=== PATIENT | female | born 1935 | race Caucasian/White ===

== ENCOUNTER 2020-09-01 12:58 | Outpatient (CLI) | payer MEDICARE, SELFPAY ==
--- NOTE | ~2020-09-01 | XR_ITS ---
XR lumbar spine 2-3V DATE: 09/01/2020 13:16 INDICATION: Right low back pain. No injury. TECHNIQUE: AP, lateral, coned lateral lumbosacral views COMPARISON: None FINDINGS: Diffuse osteopenia. Normal alignment of the lumbar vertebrae. No fracture or bone destruction is evident. The included lo wer thoracic and lumbar pedicles are intact. There is mild degenerative disease at L1-2 and L2-3, L4-5. There is severe degenerative disc disease at L5-S1. The sacroiliac joints are intact. There is calcification of the abdominal aorta but no apparent aneurysm. IMPRESSION: Multilevel degenerative disc disease, most prominent at L5-S1 Reviewed, dictated and finalized at location A.
--- NOTE | ~2020-09-01 | XR_ITS ---
XR sacroiliac joints min 3V DATE: 09/01/2020 13:16 INDICATION: Low back pain TECHNIQUE: AP and bilateral oblique views COMPARISON: None FINDINGS: No fracture or dislocation, erosive change or ankylosis at the sacroiliac joints. There is some sclerosis, right greater than left, consistent with degenerative change. There is degenerative c hange at the pubic symphysis as well. Severe degenerative disc disease at L5-S1 and lesser degenerative disc disease at the remaining mid a nd lower lumbar interspaces. IMPRESSION: Degenerative change at the sacroiliac joints; no erosive change or ankylosis Reviewed, dictated and finalized at Location A. Reviewed, dictated and finalized at location A.
--- NOTE | ~2020-09-01 | XR_ITS ---
XR pelvis 1-2V DATE: 09/01/2020 13:16 INDICATION: Low back pain, pelvic pain. TECHNIQUE: AP pelvis. COMPARISON: None FINDINGS: Degenerative changes are noted at the pubic symphysis and sacroiliac joints. No pelvic fracture or bone destruction is detected. Iliac and femoral artery calcifications. IMPRESSION: Degenerative change at the sacroiliac joints and pubic symphysis; no pelvic fracture Reviewed, dictated and finalized at location A. IMPRESSION: Degenerative change at the sacroiliac joints and pubic symphysis; n o pelvic fracture
== END 2020-09-01 12:59 | disposition home or self-care (01) ==
PROVIDERS: PCP Internal Medicine; Visit Provider Internal Medicine
DX: M51.36 Other intervertebral disc degeneration, lumbar region (principal); M51.37 Other intervertebral disc degeneration, lumbosacral region; M53.3 Sacrococcygeal disorders, not elsewhere classified
CPT/HCPCS: 72100; 72170; 72202

== ENCOUNTER → 2021-12-23 12:41 | Outpatient (CLI) | payer MEDICARE, SELFPAY ==
--- NOTE | ~2021-12-23 | CT_ITS ---
EXAMINATION: CT abdomen pelvis w con INDICATION: Unspecified abdominal pain TECHNIQUE: Computed tomographic images of the abdomen and pelvis were obtained after the administrati on of 100 cc of Omnipaque 350 intravenous contrast. The dose-length product (DLP) was 517.53 mGy-cm. Automated exposure control and iterative reconstruction technique were employed. COMPARISON: 04/02/2019 FINDINGS: Minimal dependent atelectasis is present in the lung bases. The heart size is normal. There are trace pleural effusions. The gallbladder is surgically absent. There is mild enlargement of the common bile duct and central intrahepatic ducts which is likely due to post cholecystectomy state. Pu nctate calcifications in an otherwise normal spleen likely represent healed granulomatous disease. Th e liver, pancreas, and adrenal glands are normal. Again noted is medial orientation of the lower pole s of the kidneys which appear to be connected by a thin fibrous band. An extrarenal pelvis is noted o n the right. There is calcified atherosclerosis of the aorta and many of the other arteries. No patho logically enlarged abdominal or pelvic lymph nodes are identified. A moderate volume of colonic stool is present. There is mild lumbar spondylosis. There is a small amount of intraluminal gas in the uri nary bladder. IMPRESSION: 1. No CT correlate for the patient's symptoms. 2. Small amount of intraluminal gas in the urinary bladder of unclear etiology. Correlate for history of catheterization. Reviewed, dictated and finalized at location A. NUE DIRECTOR
[2021-12-23 13:09] LABS: Estimated Glomerular Filt Rate 43
== END ==
PROVIDERS: Visit Provider Internal Medicine
DX: R10.9 Unspecified abdominal pain (principal); R79.89 Other specified abnormal findings of blood chemistry
CPT/HCPCS: 74177; Q9967

== ENCOUNTER 2022-01-27 10:06 | Outpatient (CLI) | payer MEDICARE, SELFPAY ==
--- NOTE | ~2022-01-27 | XR_ITS ---
XR chest 2V 01/27/2022 10:30 Indication: Follow-up infiltrates. Procedure: PA and lateral views of the chest Comparison: 09/01/[address] dated 12/23/2021 Findings: Bibasilar airspace disease. Small pleural effusions. Heart size normal. No edema or pneumot horax. No acute osseous abnormality. Impression: 1: Bibasilar airspace disease may represent pneumonia and/or atelectasis. 2: Small pleural effusions. Reviewed, dictated and finalized at location A. Impression: 1: Bibasilar airspace disease may represent pneumonia and/or atelectasis. 2: Small pleural effusions.
[2022-01-27 10:30] LABS: Basophils Percent Auto 0.8 % (0.2-1.2); Eosinophils Absolute Auto 0.1 K/mm3 (0-0.3); Eosinophils Percent Auto 2.6 % (0-4.4); Hematocrit 32.9 % (37.0-47.0); Hemoglobin 10.3 g/dL (12.0-15.0); Immature Granulocyte Absolute 0.01 K/mm3 (0.00-0.031); Immature Granulocyte Percent A 0.2 % (0-0.5); Lymphocytes Absolute Auto 1.48 K/mm3 (0.9-3.2); Lymphocytes Percent Auto 29.7 % (18.3-44.2); Mean Corpuscular HGB Conc 31.3 g/dl (32-36); Mean Corpuscular Hemoglobin 31.7 pg (26-34); Mean Corpuscular Volume 101.2 fl (80-100); Mean Platelet Volume 10.2 fl (7.4-10.4); Monocytes Absolute Auto 0.5 K/mm3 (0.1-0.6); Monocytes Percent Auto 9.2 % (2.6-8.5); Neutrophils Absolute Auto 2.9 K/mm3 (1.3-6.7); Neutrophils Percent Auto 57.5 % (45.5-73.1); Platelet Count Result 194 k/mm3 (150-375); Red Blood Count 3.25 M/mm3 (4.2-5.4); Red Cell Distribution Width 13.7 % (11.5-14.5)
[2022-01-27 10:42] LABS: Anion Gap 5 mmol/L (8-16); Blood Urea Nitrogen 21 mg/dL (7-17); Calcium 8.9 mg/dL (8.4-10.2); Carbon Dioxide 35 mmol/L (22-30); Chloride 100 mmol/L (98-107); Estimated Glomerular Filt Rate 53; Glucose 148 mg/dL (65-110); Magnesium 1.7 mg/dL (1.6-2.3); Potassium 3.9 mmol/L (3.4-5.0); Sodium 140 mmol/L (137-145)
[2022-01-27 10:43] LABS: Anion Gap 5 mmol/L (8-16); Blood Urea Nitrogen 21 mg/dL (7-17); Carbon Dioxide 35 mmol/L (22-30); Chloride 100 mmol/L (98-107); Estimated Glomerular Filt Rate 47; Glucose 148 mg/dL (65-110); Potassium 3.8 mmol/L (3.4-5.0); Sodium 140 mmol/L (137-145)
[2022-01-27 10:49] LABS: NT Pro B Type Natriuretic Pept 2650 pg/mL (5-100)
== END 2022-01-27 10:07 | disposition home or self-care (01) ==
PROVIDERS: PCP Internal Medicine; Visit Provider Internal Medicine
DX: R93.89 Abnormal findings on diagnostic imaging of other specified body structures (principal); I50.9 Heart failure, unspecified; R06.02 Shortness of breath; J90 Pleural effusion, not elsewhere classified; R91.8 Other nonspecific abnormal finding of lung field
CPT/HCPCS: 36415; 71046; 80048; 83735; 83880; 85025

== ENCOUNTER 2022-02-03 09:50 | Outpatient (CLI) | payer MEDICARE, SELFPAY ==
[2022-02-03 10:54] LABS: NT Pro B Type Natriuretic Pept 1080 pg/mL (5-100)
== END 2022-02-03 09:51 | disposition home or self-care (01) ==
LOC: ANHLAB 09:53
PROVIDERS: PCP Internal Medicine; Visit Provider Internal Medicine
DX: I50.9 Heart failure, unspecified (principal); R06.02 Shortness of breath
CPT/HCPCS: 36415; 83880

== ENCOUNTER 2022-02-04 14:13 | Outpatient (CLI) | payer MEDICARE, SELFPAY ==
[2022-02-04 14:45] LABS: Anion Gap 8 mmol/L (8-16); Blood Urea Nitrogen 20 mg/dL (7-17); Calcium 9.5 mg/dL (8.4-10.2); Carbon Dioxide 34 mmol/L (22-30); Chloride 99 mmol/L (98-107); Estimated Glomerular Filt Rate 43; Glucose 95 mg/dL (65-110); Potassium 4.3 mmol/L (3.4-5.0); Sodium 141 mmol/L (137-145)
== END 2022-02-04 14:14 | disposition home or self-care (01) ==
LOC: ANHLAB 14:16
PROVIDERS: PCP Internal Medicine; Visit Provider Internal Medicine
DX: N18.2 Chronic kidney disease, stage 2 (mild) (principal); I50.9 Heart failure, unspecified
CPT/HCPCS: 36415; 80048

== ENCOUNTER 2022-03-11 10:24 | Outpatient (CLI) | payer MEDICARE, SELFPAY ==
[2022-03-11 10:59] LABS: Alanine Aminotransferase 86 U/L (4-35); Albumin Level 4.6 g/dL (3.5-5.1); Alkaline Phosphatase 51 U/L (38-126); Anion Gap 12 mmol/L (8-16); Aspartate Amino Transferase 108 U/L (14-36); Bilirubin,Total 0.6 mg/dL (0.2-1.3); Blood Urea Nitrogen 33 mg/dL (7-17); Calcium 9.8 mg/dL (8.4-10.2); Carbon Dioxide 23 mmol/L (22-30); Chloride 100 mmol/L (98-107); Cholesterol 136 mg/dL (0-200); Estimated Glomerular Filt Rate 28; Glucose 106 mg/dL (65-110); HDL Direct 42 mg/dL; Potassium 4.9 mmol/L (3.4-5.0); Sodium 135 mmol/L (137-145); Triglycerides 176 mg/dL (<150)
[2022-03-11 11:00] LABS: Hemoglobin A1C 5.8 % (<5.7)
[2022-03-11 11:10] LABS: LDL Cholesterol Direct 47 mg/dL
== END 2022-03-11 10:25 | disposition home or self-care (01) ==
PROVIDERS: PCP Internal Medicine; Visit Provider Internal Medicine
DX: E11.22 Type 2 diabetes mellitus with diabetic chronic kidney disease (principal); N18.2 Chronic kidney disease, stage 2 (mild); I50.9 Heart failure, unspecified
CPT/HCPCS: 36415; 80053; 80061; 83036

== ENCOUNTER 2022-04-02 07:19 | Outpatient (CLI) | payer MEDICARE, SELFPAY ==
--- NOTE | ~2022-04-02 | NM_ITS ---
EXAMINATION: NM martin stress w perfusion DATE: 04/02/2022 14:25 INDICATION: Dyspnea TECHNIQUE: Rest images were obtained following intravenous administration of 9.5 mCi Tc99m tetrofosmi n (Myoview). The patient was infused intravenously with Lexiscan (Regadenoson). Then, 30.5 mCi Tc99m tetrofosmin (Myoview) was administered intravenously, and stress images were obtained. Data was recon structed into short axis and horizontal and vertical long axis SPECT images. Gated SPECT images were also obtained. COMPARISON: None. FINDINGS: Normal perfusion on rest imaging. Equivocal small mild reversible perfusion defect on the p ost stress images at the apical inferior and apical septal segments. There is normal left ventricula r chamber size, wall motion and ejection fraction. Left ventricular ejection fraction measures >70%. IMPRESSION: 1. Normal myocardial perfusion at rest and during stress. 2. Left ventricular ejection fraction measuring >70%. Reviewed, dictated and finalized at location B.
--- NOTE | 2022-04-02 07:38 | ECHO_ITS ---
Patient Info Name: Elaine Menendez Age: 86 years : 1935 Gender: Female Ht: 62 in Wt: 110 lbs BSA: 1.48 m2 HR: 53 bpm BP: 130 / 88 mmHg Technical Quality: Fair Exam Date: 04/02/2022 8:19 AM Exam Location: [facility] Patient Status: Outpatient Admit Date: 04/02/2022 Staff Ordering Physician: Austyn Sewell DO Microfilming Document Preparer: Mehrdad Koenig RDCS, RT Attending Provider: Austyn Sewell DO Referring Physician: Donato DESAI; Exam Type: CA echo doppler color flow Study Info Indications R06.00 - Dyspnea, unspecified Complete two-dimensional, color flow and Doppler transthoracic echocardiogram is performed. Summary 1. Complete two-dimensional, color flow and Doppler transthoracic echocardiogram is performed. 2. Left ventricular chamber dimension is normal. 3. Left ventricular systolic function is normal, estimated at 60-65%. 4. There is mildly increased left ventricular wall thickness. 5. The left ventricular diastolic function is abnormal. 6. E/e' 13 is mildly elevated. 7. There is mild aortic valve sclerosis. 8. The mitral valve has mildly calcified annulus. 9. There is mild mitral valve regurgitation. 10. No pulmonary hypertension, estimated pulmonary arterial systolic pressure is 36 mmHg. 11. There is small right sided pericardial effusion. No cardiac tamponade. Left Ventricle E/e' 13 is mildly elevated. Left ventricular chamber dimension is normal. Left ventricular systolic function is normal, estimated at 60-65%. There is mildly increased left ventricular wall thickness. The left ventricular diastolic function is abnormal. Right Ventricle Right ventricular systolic function is normal and with normal TAPSE 2.0 cm. Right ventricular chamber dimension is normal. Left Atria Left atrial chamber dimension is normal. Right Atria Right atrial chamber dimension is normal. Aortic Valve The aortic valve is trileaflet. There is mild aortic valve sclerosis. There is no aortic valve stenosis. There is no aortic valve regurgitation. Pulmonic Valve There is no pulmonic regurgitation. Mitral Valve The mitral valve has mildly calcified annulus. There is no mitral valve stenosis. There is mild mitral valve regurgitation. Tricuspid Valve There is no tricuspid valve regurgitation. No pulmonary hypertension, estimated pulmonary arterial systolic pressure is 36 mmHg. Pericardium/Pleural There is small right sided pericardial effusion. No cardiac tamponade. Inferior Vena Cava Normal inferior vena cava with >50% collapse upon inspiration consistent with normal right atrial pressure, 5 mmHg. Aorta The aortic root size at the sinus of Valsalva is normal. Left Ventricular Outflow Tract Name Value Normal LVOT 2D LVOT Diameter 2.0 cm LVOT Doppler LVOT Peak Gradient 1 mmHg LVOT Mean Gradient 1 mmHg LVOT VTI 15 cm LVOT VTI/AV VTI Ratio 0.6 LVOT Stroke Volume 45 ml LVOT CO 2.4 l/min LVO
--- NOTE | 2022-04-02 08:01 | EST_ITS ---
Patient Info Name: Elaine Menendez Age: 86 years : 1935 Gender: Female Ht: 64 in Wt: 118 lbs BSA: 1.55 m2 HR: 53 bpm BP: 135 / 65 mmHg Heart Rhythm: Sinus Rhythm Exam Date: 04/02/2022 9:22 AM Exam Location: [facility] Stress Patient Status: Outpatient Admit Date: 04/02/2022 Staff Ordering Physician: Austyn Sewell DO Attending Provider: Austyn Sewell DO Exercise Technologist: Rosy Watson CT Exercise Physician: Austyn Sewell DO Exam Type: CA stress martin w NM Study Info Indications R06.09 - Other forms of dyspnea A regadenoson stress test was performed. Summary 1. 1. Abnormal lexiscan stress test for ischemic ST changes by ECG criteria. 2. 2. Stable hemodynamics throughout the test. 3. 3. Nuclear scan to follow and will be reported separately. Please correlate with it. 4. 4. Patient informed of the above results. Protocol: Lexiscan Stress ECG Details Stage: REST Duration (min): 0 min : 52 sec HR (bpm): 54 SBP (mmHg): 135 DBP (mmHg): 65 Stage: REST Duration (min): 12 min : 3 sec HR (bpm): 52 SBP (mmHg): 135 DBP (mmHg): 65 Stage: STAGE 1 Duration (min): 0 min : 59 sec HR (bpm): 54 SBP (mmHg): 164 DBP (mmHg): 68 Stage: RECOVERY Duration (min): 1 min : 0 sec HR (bpm): 55 SBP (mmHg): 164 DBP (mmHg): 68 Stage: RECOVERY Duration (min): 2 min : 0 sec HR (bpm): 55 SBP (mmHg): 164 DBP (mmHg): 68 Stage: RECOVERY Duration (min): 3 min : 0 sec HR (bpm): 55 SBP (mmHg): 165 DBP (mmHg): 65 Stage: RECOVERY Duration (min): 4 min : 0 sec HR (bpm): 53 SBP (mmHg): 165 DBP (mmHg): 65 Stage: RECOVERY Duration (min): 5 min : 0 sec HR (bpm): 83 SBP (mmHg): 159 DBP (mmHg): 60 Stage: RECOVERY Duration (min): 6 min : 0 sec HR (bpm): 86 SBP (mmHg): 159 DBP (mmHg): 60 Stage: RECOVERY Duration (min): 7 min : 0 sec HR (bpm): 87 SBP (mmHg): 138 DBP (mmHg): 59 Stage: RECOVERY Duration (min): 8 min : 0 sec HR (bpm): 88 SBP (mmHg): 138 DBP (mmHg): 59 Stage: RECOVERY Duration (min): 9 min : 0 sec HR (bpm): 85 SBP (mmHg): 140 DBP (mmHg): 61 Stage: RECOVERY Duration (min): 10 min : 0 sec HR (bpm): 84 SBP (mmHg): 140 DBP (mmHg): 61 Stage: RECOVERY Duration (min): 11 min : 0 sec HR (bpm): 76 SBP (mmHg): 151 DBP (mmHg): 63 Stage: RECOVERY Duration (min): 12 min : 0 sec HR (bpm): 73 SBP (mmHg): 151 DBP (mmHg): 63 Stage: RECOVERY Duration (min): 13 min : 0 sec HR (bpm): 67 SBP (mmHg): 157 DBP (mmHg): 66 Stage: RECOVERY Duration (min): 13 min : 7 sec HR (bpm): 67 SBP (mmHg): 157 DBP (mmHg): 66 Rest HR: 52 bpm Peak HR: 90 bpm
== END 2022-04-02 07:20 | disposition home or self-care (01) ==
LOC: ANHCARD 07:20
PROVIDERS: PCP Internal Medicine; Visit Provider Internal Medicine Cardiovascular Disease
DX: R06.00 Dyspnea, unspecified (principal); R93.1 Abnormal findings on diagnostic imaging of heart and coronary circulation; J90 Pleural effusion, not elsewhere classified; I35.8 Other nonrheumatic aortic valve disorders
CPT/HCPCS: 78452; 93017; 93306; A9502; J0280; J2785

== ENCOUNTER 2022-04-15 10:11 | Outpatient (CLI) | payer MEDICARE, SELFPAY ==
[2022-04-15 10:55] LABS: Anion Gap 11 mmol/L (8-16); Blood Urea Nitrogen 25 mg/dL (7-17); Calcium 9.1 mg/dL (8.4-10.2); Carbon Dioxide 20 mmol/L (22-30); Chloride 89 mmol/L (98-107); Estimated Glomerular Filt Rate 47; Glucose 97 mg/dL (65-110); Potassium 4.9 mmol/L (3.4-5.0); Sodium 120 mmol/L (137-145)
== END 2022-04-15 10:12 | disposition home or self-care (01) ==
PROVIDERS: PCP Internal Medicine; Visit Provider Internal Medicine
DX: I50.9 Heart failure, unspecified (principal)
CPT/HCPCS: 36415; 80048

== ENCOUNTER 2022-04-15 11:50 | Inpatient (IN) | payer MEDICARE, SELFPAY ==
[2022-04-15] VITALS (24 sets, daily range): BP systolic 94–119; BP diastolic 31–58; PULSE 48–60; RESP 11–21; TEMP 36.2–36.7; O2SAT 96–100; BMI 19.1
--- NOTE | 2022-04-15 12:43 | ED.RECABL ---
HPI - Recheck/Abnormal Lab/Rx General Chief Complaint: Recheck/Abnormal Lab/Rx Stated Complaint: ABN LABS Time Seen by Provider: 04/15/22 12:16 History of Present Illness HPI narrative: Pt here today because had low sodium on routine outpatient labs. Pt told her sodium is low. Pt is asymptomatic and has no complaints. Related Data Home Medications Medication Instructions Recorded Confirmed aspirin 81 mg tablet,delayed 81 mg PO DAILY 01/27/22 04/15/22 release (Adult Low Dose Aspirin) empagliflozin 10 mg-linagliptin 5 1 tablet PO DAILY 02/04/22 04/15/22 mg tablet (Glyxambi) Allergies Allergy/AdvReac Type Severity Reaction Status Date / Time codeine Allergy Unknown Swelling Verified 04/15/22 16:43 Review of Systems Review of Systems: All systems reviewed & are unremarkable except as noted in HPI and below PMFSH Past Medical History Medical History (Updated 04/15/22 @ 13:42 by Vanessa Floyd III, DO) Abdominal pain Benign essential hypertension BMI 20.0-20.9, adult BMI 24.0-24.9, adult BMI 25.0-25.9,adult BMI 26.0-26.9,adult CHF (congestive heart failure) CKD (chronic kidney disease) Diarrhea DM type 2 (diabetes mellitus, type 2) Elevated LFTs Encounter for Medicare annual wellness exam Encounter for routine adult health examination without abnormal findings Follow up Follow up Hospital discharge follow-up Hyperlipidemia Hypomagnesemia Kidney lesion Low back pain On [facility] drug therapy Positive colorectal cancer screening using Cologuard test Sacroiliitis Vitamin D deficiency Social History Social History Smoking status: Never smoker Alcohol intake: never Substance use: never Spiritual care concerns: No Exam Const: General: healthy appearing, no acute distress and alert Nutritional Appearance: well nourished Orientation/consciousness: patient oriented x3 Limitations: no limitations HENMT: Head: normal to inspection Mouth: Yes Normal oral and palatal mucosa present Eyes: Conjunctivae: conjunctivae normal EOM: EOMs intact bilaterally Direct Ophthalmoscopy: no photophobia Neck: Neck: normal visual inspection and no meningeal signs Resp: Effort & Inspection: normal respiratory effort Auscultation: clear to auscultation bilaterally Cardio: Rate: regular rate Rhythm: regular rhythm GI: GI Palp: Yes Soft to palpation Auscultation: normal bowel sounds Skin: General skin exam: normal color Rashes: no rashes Wounds: no wounds Neuro: General: patient oriented x3, moves all extremities, no meningeal signs, no focal motor deficits and CN's II-XI intact bilaterally Cranial nerves: Yes Nystagmus not present Speech: normal speech Extrem: General: normal to inspection and no clubbing, cyanosis or edema Psych: Mental Status: mental status grossly normal Affect: normal affect Attitude: cooperative Course Vital Signs Vital signs: Vital Signs Temperature 97.2 F L 04/15/22 11:52 Pulse Rate 60 04/15/22 11:52 Respiratory Rate 18 04/15/22 11:52 Blood Pressure 105/31 L 04/15/22 11:52 Pulse Oximetry 100 04/15/22 11:52 Oxygen Delivery Room Air 04/15/22 11:52 Temperature 97.2 F L 04/15/22 11:52 Pulse Rate 48 L 04/15/22 15:01 Respiratory Rate 12 04/15/22 15:01 Blood Pressure 96/44 L 04/15/22 13:46 Pulse Oximetry 100 04/15/22 16:45 Oxygen Delivery Room Air 04/15/22 16:45 MDM - Recheck/Abnormal Lab/Rx Lab Data Result diagrams: 04/15/22 12:41 04/15/22 16:36 Labs: Lab Results 04/15/22 04/15/22 Range/Units 12:41 12:41 WBC 5.2 (4.5-10.0) K/mm3 RBC 3.57 L (4.2-5.4) M/mm3 Hgb 10.7 L (12.0-15.0) g/dL Hct 31.7 L (37.0-47.0) % MCV 88.8 (80-100) fl MCH 30.0 (26-34) pg MCHC 33.8 (32-36) g/dl RDW 12.4 (11.5-14.5) % Plt Count 158 (150-375) k/mm3 MPV 10.2 (7.4-10.4) fl Immature Gran % (Auto) 0.4 (0-0.5) %
[2022-04-15 12:47] LABS: Basophils Percent Auto 0.4 % (0.2-1.2); Eosinophils Percent Auto 0.6 % (0-4.4); Hematocrit 31.7 % (37.0-47.0); Hemoglobin 10.7 g/dL (12.0-15.0); Immature Granulocyte Absolute 0.02 K/mm3 (0.00-0.031); Immature Granulocyte Percent A 0.4 % (0-0.5); Lymphocytes Absolute Auto 1.65 K/mm3 (0.9-3.2); Lymphocytes Percent Auto 31.8 % (18.3-44.2); Mean Corpuscular HGB Conc 33.8 g/dl (32-36); Mean Corpuscular Volume 88.8 fl (80-100); Mean Platelet Volume 10.2 fl (7.4-10.4); Monocytes Absolute Auto 0.4 K/mm3 (0.1-0.6); Monocytes Percent Auto 6.7 % (2.6-8.5); Neutrophils Absolute Auto 3.1 K/mm3 (1.3-6.7); Neutrophils Percent Auto 60.1 % (45.5-73.1); Platelet Count Result 158 k/mm3 (150-375); Red Blood Count 3.57 M/mm3 (4.2-5.4); Red Cell Distribution Width 12.4 % (11.5-14.5); White Blood Count 5.2 K/mm3 (4.5-10.0)
[2022-04-15 13:07] LABS: Alanine Aminotransferase 104 U/L (6-35); Albumin Level 4.3 g/dL (3.5-5.1); Alkaline Phosphatase 45 U/L (38-126); Anion Gap 10 mmol/L (8-16); Aspartate Amino Transferase 77 U/L (14-36); Bilirubin,Total 0.6 mg/dL (0.2-1.3); Blood Urea Nitrogen 26 mg/dL (7-17); Carbon Dioxide 21 mmol/L (22-30); Chloride 88 mmol/L (98-107); Estimated CRCL calculation 26 ml/min; Estimated Glomerular Filt Rate 47; Glucose 137 mg/dL (65-110); Sodium 119 mmol/L (137-145)
--- NOTE | 2022-04-15 14:25 | PC.NURSE ---
After two failed attempts at IV access the Vascular Access nurse was consulted. At bedside to place PIV.
[2022-04-15] MEDS: SODIUM CHLORIDE 0.9% IV 1,000 ML 125 ML IV CONT (14:43)
[2022-04-15 16:57] LABS: Sodium 122 mmol/L (137-145)
--- NOTE | 2022-04-15 17:21 | ADMGEN ---
This patient, Elaine Menendez, was admitted to 3 [facility] Surg Room 325-01 at 1620. Patient/family oriented to hospital policies and general routines including ID bracelet, bed and alarms, visiting hours, pain management, procedures, bathroom and other care routines, personal items, smoking policy, room service/diet, and visiting hours. Information on how to activate the Rapid Response Team has been discussed. Patient/Family are encouraged to report perceived risks to care and to ask questions if they do not understand what they are told or what they should do.
[2022-04-15 18:04] LABS: Hepatitis B Surface Antigen Negative (Negative)
[2022-04-15 18:10] LABS: HAV RESULT Negative (Negative); Hepatitis B Core IgM Result Negative (Negative)
--- NOTE | 2022-04-15 18:15 | PM.IMHP ---
H&P: HPI History of Present Illness Date/Time: 04/15/22 18:15 Chief Complaint: Low sodium levels. Narrative: This is a very pleasant 86-year-old female with type 2 diabetes mellitus, hypertension, and dyslipidemia who presented to the emergency department for evaluation of low sodium levels found on routine labs. She has not had problems with low sodium to her knowledge and on review of her labs it looks like over the past month her sodium has gradually trended down words. On arrival to the ER today her sodium was 119 and interestingly she has absolutely no complaints and tells me she feels just fine. She specifically denies headache, confusion, nausea, vomiting, fatigue, and drowsiness. She has not been started on any new medications recently though it looks like she was put on furosemide in January due to lower extremity edema though that has resolved. Her appetite has been as per usual and she has been eating and drinking normally. She does mention that within the last several months she has been drinking at least 6, 12 oz glasses of water a day because she was instructed to by her doctor. Prior to that she admits that she did not drink much water whatsoever. At the time my evaluation she has no complaints Review of Systems Review of Systems: Twelve systems were reviewed. No fever, chills, or sweats. No cold or flu symptoms. No sick contacts. She believes her diabetes is well controlled but does not sound as though she checks her glucose on a daily basis. No dysuria. She thinks she is urinating a bit more since increasing her water intake the last several months. She has not had dysuria or any other urinary symptoms. Except as documented, all other systems were reviewed and are negative. [facility] Past Medical History Medical History (Updated 04/15/22 @ 22:00 by Katarina Pablo PA-C) Benign essential hypertension Chronic kidney disease, stage 3 Diastolic dysfunction Hyperlipidemia Kidney lesion Sacroiliitis Type 2 diabetes mellitus Vitamin D deficiency Family History Family History (Updated 04/15/22 @ 21:55 by Katarina Pablo PA-C) Other Diabetes mellitus Hypertension Social History Social History (Updated 04/15/22 @ 21:56 by Katarina Pablo PA-C) Social History: The patient lives in [place]. Her son and [id number] live with her. She ambulates with a walker. Nonsmoker. No alcohol or illicit substance use. Surrogate decision maker: Milton Menendez, son. Code status: Full code. Spiritual care concerns: No Meds Home Medications and Allergies Home Medications Medication Instructions Recorded Confirmed Type blood sugar diagnostic (Blood #50 ea 06/05/21 04/15/22 Rx Glucose Test strips) blood-glucose meter (Blood Glucose #1 ea 06/05/21 04/15/22 Rx Monitoring kit) lancets 28 gauge #100 ea 06/05/21 04/15/22 Rx ezetimibe 10 mg tablet See Rx Instructions .Route 06/08/21 04/15/22 Rx .COMPLEX #90 tabs ergocalciferol (vitamin D2) 1,250 1,250 mcg PO .COMPLEX #10 caps 12/08/21 04/15/22 Rx mcg (50,000 unit) capsule (Vitamin D2) rosuvastatin 40 mg tablet See Rx Instructions .Route 12/08/21 04/15/22 Rx .COMPLEX #90 tabs aspirin 81 mg tablet,delayed 81 mg PO DAILY 01/27/22 04/15/22 History release (Adult Low Dose Aspirin) carvedilol 6.25 mg tablet 6.25 mg PO BID #180 tabs 01/28/22 04/15/22 Rx lisinopril 20 mg tablet 20 mg PO DAILY #90 tabs 01/28/22 04/15/22 Rx empagliflozin 10 mg-linagliptin 5 1 tablet PO DAILY 02/04/22 04/15/22 History mg tablet (Glyxambi) furosemide 20 mg tablet 20 mg PO QAM #30 tabs 03/10/22 04/15/22 Rx Allergies Allergy/AdvReac Type Severity Reaction Status Date / Time codeine Allergy Unknown Swelling Verified 04/15/22 16:43 Vital Signs Vital Signs - 24 hr 04/15/22 11:52 04/15/22 12:24 04/15/22 12:10 Temperature 97.2 F L Pulse Rate 60 56 L 56 L Respiratory Rate 18 13 Blood Pressure 105/31 L 112/58 L Pulse Oximetry 100 99 96 Oxygen Delive
[2022-04-15 18:22] LABS: Hepatitis C Virus Antibody Negative (Negative)
[2022-04-15 19:45] LABS: Sodium 123 mmol/L (137-145)
[2022-04-15 21:54] LABS: Creatinine Urine 16.5 mg/dL
[2022-04-15 21:55] LABS: Sodium Urine Random 19 meq/L
[2022-04-15 23:08] LABS: Sodium 126 mmol/L (137-145)
[2022-04-15 23:40] LABS: Glucose Point of Care 166 mg/dl (65-105)
[2022-04-16] VITALS (11 sets, daily range): BP systolic 92–102; BP diastolic 49–52; PULSE 52–68; RESP 16–18; TEMP 36.4–36.6; O2SAT 97–99
[2022-04-16 01:44] LABS: Sodium 127 mmol/L (137-145)
[2022-04-16] MEDS: SODIUM CHLORIDE 0.9% IV 1,000 ML 125 ML IV CONT (02:14)
[2022-04-16 06:18] LABS: Hematocrit 28.5 % (37.0-47.0); Hemoglobin 9.7 g/dL (12.0-15.0); Mean Corpuscular Hemoglobin 30.1 pg (26-34); Mean Corpuscular Volume 88.5 fl (80-100); Mean Platelet Volume 10.3 fl (7.4-10.4); Platelet Count Result 162 k/mm3 (150-375); Red Blood Count 3.22 M/mm3 (4.2-5.4); Red Cell Distribution Width 12.5 % (11.5-14.5); White Blood Count 4.4 K/mm3 (4.5-10.0)
[2022-04-16 06:47] LABS: Alanine Aminotransferase 87 U/L (6-35); Albumin Level 3.5 g/dL (3.5-5.1); Alkaline Phosphatase 52 U/L (38-126); Anion Gap 6 mmol/L (8-16); Aspartate Amino Transferase 60 U/L (14-36); Bilirubin,Total 0.3 mg/dL (0.2-1.3); Blood Urea Nitrogen 27 mg/dL (7-17); Calcium 8.5 mg/dL (8.4-10.2); Carbon Dioxide 23 mmol/L (22-30); Chloride 100 mmol/L (98-107); Estimated CRCL calculation 22 ml/min; Estimated Glomerular Filt Rate 39; Glucose 86 mg/dL (65-110); Potassium 4.6 mmol/L (3.4-5.0); Sodium 129 mmol/L (137-145)
[2022-04-16 07:49] LABS: Glucose Point of Care 98 mg/dl (65-105)
--- NOTE | 2022-04-16 09:16 | PM.IMPN ---
Progress Note: A&P Assessment and Plan (1) Hyponatremia: Code(s): E87.1 - Hypo-osmolality and hyponatremia Status: Acute Assessment and Plan: Current sodium 132 (12:36hrs), admission was 119. Etiology is not entirely clear, though patient does report recently starting lasix and increasing her water intake to (6) 12-oz glasses of water a day. She previously did not drink very much water. We have held her lasix at this time. She does appear euvolemic on exam though her sodium level has increased with normal saline start in the ER thus will continue with that with close monitoring of her sodium levels. We will monitor her fluid status closely during replenishment. Nephrology has been consulted and their input is greatly appreciated. Random urine sodium 19 Urine Cr 16.5 Urine osmolality pending. TSH WNL (2) Chronic kidney disease, stage 3: Code(s): N18.30 - Chronic kidney disease, stage 3 unspecified Status: Acute Assessment and Plan: Creatinine is stable on review of previous labs and will be monitored. (3) Elevated LFTs: Code(s): R79.89 - Other specified abnormal findings of blood chemistry Status: Acute Assessment and Plan: Noted on previous labs and stable. Abdominal exam benign. Hepatitis panel negative. (4) Type 2 diabetes mellitus: Code(s): E11.9 - Type 2 diabetes mellitus without complications Status: Acute Assessment and Plan: Glucose 86 today. Continue empagliflozin. Initiate sliding scale insulin, Accu-Cheks, and hypoglycemic protocol, diabetic diet. Patient reports she is very conscientious about her diet, but was told by her primary she was allowed to have a brownie and ice cream for her birthday on Tuesday. (5) Diastolic dysfunction: Code(s): I51.89 - Other ill-defined heart diseases Status: Acute Assessment and Plan: Patient denies any concerns of chest pain, shortness a breath, orthopnea, PND, syncope, or near syncopal episodes. 04/02/22 Echo showed LVEF of 60-65%, mild increase in left ventricular wall thickness, and abnormal diastolic function of the LV. Mild aortic valve sclerosis and mild MV sclerosis and regurgitation. She appears euvolemic at this time with no adventitious lung sounds or lower extremity swelling. Monitor volume status while cautiously hydrating. Monitor for chest pain/shortness of breath. Subjective Date/time seen: 04/16/22 09:16 Interval history: Very pleasant 86-year-old female with type 2 diabetes mellitus, hypertension, diastolic dysfunciton, and dyslipidemia who presented to the emergency department for evaluation of low sodium levels found on routine labs. She was recently started on furosemide in january and has increased her water intake at the recommendation of her doctor over the past few months. She cannot think of any other changes. She denies lightheadedness, shortness of breath, chest pain, abdominal pain, dizziness, syncope or near syncope. Her only request is to be able to return home by her birthday on Tuesday. She does report a history of recent trips to the hospital in [place] for shortness of breath. She was unaware of the cause of her shortness of breath. She appears to be a very compliant patient. Dr. Suh visited her this morning in the hospital. Review of Systems Review of Systems: All systems reviewed & are unremarkable except as noted in HPI and below Exam Narrative: GENERAL APPEARANCE: Alert and oriented x 3, in no apparent distress. HEENT: PERRL, EOMI. Sclerae anicteric. Moist mucous membranes. NECK: Supple. No JVD or obvious carotid bruits. RESPIRATORY: Respirations are nonlabored. Breath sounds are equal and clear bilaterally. No wheezes, Rhonchi, or rales. CARDIOVASCULAR: Regular rate and rhythm with normal S1-S2. GASTROINTESTINAL: Soft, flat, and benign. No mass, tenderness, guarding, or rebound. No organomegaly or hernia. Sadiq
[2022-04-16] MEDS: carvediloL 6.25 MG TABLET PO ×2 (09:21→21:40)
[2022-04-16] MEDS: ASPIRIN 81 MG ENTERIC TABLET PO (09:21)
[2022-04-16] MEDS: lisinopriL 20 MG TABLET PO (09:21)
[2022-04-16] MEDS: EZETIMIBE 10 MG TABLET BY MOUTH (09:22)
[2022-04-16] MEDS: ROSUVASTATIN 10 MG TABLET 40 MG BY MOUTH (10:09)
[2022-04-16] MEDS: EMPAGLIFLOZIN 10 MG TABLET PO (10:10)
[2022-04-16 10:22] LABS: Sodium 131 mmol/L (137-145)
[2022-04-16 10:23] LABS: Cholesterol 108 mg/dL (0-200); HDL Direct 40 mg/dL; Triglycerides 97 mg/dL (<150)
[2022-04-16 10:34] LABS: LDL Cholesterol Direct 40 mg/dL
--- NOTE | 2022-04-16 13:02 | PCCCNOTE ---
On 04/16/22, the student, [Elisha Vaz], provided care and completed [facility] documentation on this patient. I have reviewed the student's documentation and agree with the findings.
[2022-04-16 13:13] LABS: Sodium 132 mmol/L (137-145)
--- NOTE | 2022-04-16 14:03 | PM.CNNEP ---
Assessment and Plan Additional Plan 1. Surely has chronic kidney disease. Her creatinine is at its baseline. Most likely this is due to hypertension, vascular disease, and diabetes. She is at her baseline creatinine. 2. The patient has hyponatremia. Since 2010 she has had sodiums between 130 and 135. however in late 2020 and early 2021 her sodium levels were better. She was recently placed on some diuretics. And in addition another doctor told her to drink lots of fluid. So she did all of that. Her sodium gradually dropped over the last week or 2 to the admission level of 120. Because of the slow drop in the sodium her mental status seems to be pretty good. She was treated with some IV fluids thinking that she might be dehydrated. And her sodium did correct but now it has corrected too quickly. I will give her D5W at 3 mils per kg per hour for 2 hours and also DDAVP 2 mcg IV. I am hoping to get the sodium level down to about 127 I asked the nurse to draw another sodium level after this is done and give me a call with the results. In the meantime will get a cortisol level to complete the workup for the hyponatremia. 3. Diabetes the patient is on her diabetic meds. 4. Hypertension the patient's blood pressure is under good control 5. diastolic dysfunction the patient seems compensated now. History of Present Illness Reason for Consult Consult date: 04/16/22 Chief Complaint Chief complaint: Hyponatremia History of Present Illness Narrative: Elaine is a very pleasant 86-year-old lady who has chronic kidney disease and hyponatremia. Patient has chronic kidney disease with a baseline creatinine of around 1.1-1.3. She used to see Dr. Saldaña in the office but stopped many years ago. Her GFR is not worsened since then. Most likely this is from hypertension and diabetes. The patient also has chronic hyponatremia. This goes back to around 2010. Her sodium levels generally run in the 130s. interestingly, however late last year and early this year her sodium has been normal. It is unclear whether she has been evaluated for this before. However in the past she has had a TSH and a serum protein electrophoresis both of which were okay. Lately she has been on more diuretics. On 03/11 her sodium was 135, on 04/07 was 126, and on it was 120. They got this result and had her come to the emergency room. Interestingly she had no neurologic symptoms at all. She was to possibly be a little dehydrated. She was given some normal saline. Her sodium donna from 119 at noon yesterday to 132 at noon today. The patient's mental status is okay. She does not feel taxed mentally. No tremor twitching or seizures. She does not take any pain pills, antidepressants, or diuretics. She does not take any nonsteroidal anti-inflammatory agents. She is not on a PPI. She does not have personal history of cancer. No pulmonary or [employer] issues. Review of Systems Constitutional: Constitutional: Reports no additional constitutional complaints Eyes: Eyes: Reports no additional eye complaints ENT: Reports system reviewed and no additional complaints, except as documented Cardiovascular: Cardiovascular: Reports no additional cardiovascular complaints Respiratory: Respiratory: Reports no additional respiratory complaints Gastrointestinal: Gastrointestinal: Reports no additional gastrointestinal complaints Genitourinary: Genitourinary: Reports no additional female genitourinary complaints Musculoskeletal: Musculoskeletal: Reports no additional musculoskeletal complaints Integumentary/Breasts: Skin/Breast: Reports system reviewed and no additional complaints, except as docu Neurologic: Reports system reviewed and no additional complaints, except as documented Psychiatric: Psychiatric: Reports no additional psychiatric complaints Endocrine: Endocrine: Reports no additional endocrine complaints PMFSH Past Medical History Me
[2022-04-16 14:49] LABS: Cortisol Random 8.14 ug/dL
[2022-04-16] MEDS: DEXTROSE 5% 1,000 ML 1,000 ML 150 ML IV CONT (16:08)
[2022-04-16 16:30] LABS: Glucose Point of Care 117 mg/dl (65-105)
[2022-04-16 17:02] LABS: Sodium 132 mmol/L (137-145)
[2022-04-16 17:26] LABS: Glucose Point of Care 135 mg/dl (65-105)
[2022-04-16 20:28] LABS: Glucose Point of Care 179 mg/dl (65-105)
[2022-04-16 22:55] LABS: Sodium 126 mmol/L (137-145)
[2022-04-17] VITALS (11 sets, daily range): BP systolic 115–147; BP diastolic 56–59; PULSE 47–63; RESP 16–18; TEMP 36.3–36.5; O2SAT 96–98
[2022-04-17 08:15] LABS: Glucose Point of Care 94 mg/dl (65-105)
[2022-04-17] MEDS: carvediloL 6.25 MG TABLET PO ×2 (09:33→22:15)
[2022-04-17] MEDS: EMPAGLIFLOZIN 10 MG TABLET PO (09:33)
[2022-04-17] MEDS: lisinopriL 20 MG TABLET PO (09:34)
[2022-04-17] MEDS: ASPIRIN 81 MG ENTERIC TABLET PO (09:35)
[2022-04-17] MEDS: EZETIMIBE 10 MG TABLET BY MOUTH (09:35)
[2022-04-17] MEDS: ROSUVASTATIN 10 MG TABLET 40 MG BY MOUTH (09:35)
--- NOTE | 2022-04-17 09:44 | PM.IMPN ---
Progress Note: A&P Assessment and Plan (1) Hyponatremia: Code(s): E87.1 - Hypo-osmolality and hyponatremia Status: Acute Assessment and Plan: Current sodium 126 (12:36hrs), admission was 119. Etiology is not entirely clear, though patient does report recently starting lasix and increasing her water intake to (6) 12-oz glasses of water a day. She previously did not drink very much water. We have held her lasix at this time. Nephrology has been consulted and their input is greatly appreciated. Random urine sodium 19 Urine Cr 16.5 Urine osmolality pending. TSH WNL Random cortisol 8.14 at noon. Lipid panel shows Tg 97, total chol 108. Glucose 86 04/17 Nephrology will check cortrosyn stimulation test, reinstitute fluid restriction at 1500 CC, and check another sodium in the afternoon. (2) Chronic kidney disease, stage 3: Code(s): N18.30 - Chronic kidney disease, stage 3 unspecified Status: Acute Assessment and Plan: Creatinine is stable on review of previous labs and will be monitored. (3) Elevated LFTs: Code(s): R79.89 - Other specified abnormal findings of blood chemistry Status: Acute Assessment and Plan: Noted on previous labs and stable. Abdominal exam benign. Hepatitis panel reactive for hepatitis A. Supportive care only at this time. (4) Type 2 diabetes mellitus: Code(s): E11.9 - Type 2 diabetes mellitus without complications Status: Acute Assessment and Plan: Glucose 86 today. Continue empagliflozin. Initiate sliding scale insulin, Accu-Cheks, and hypoglycemic protocol, diabetic diet. Patient reports she is very conscientious about her diet, but was told by her primary she was allowed to have a brownie and ice cream for her birthday on Tuesday. (5) Diastolic dysfunction: Code(s): I51.89 - Other ill-defined heart diseases Status: Acute Assessment and Plan: Patient denies any concerns of chest pain, shortness a breath, orthopnea, PND, syncope, or near syncopal episodes. 04/02/22 Echo showed LVEF of 60-65%, mild increase in left ventricular wall thickness, and abnormal diastolic function of the LV. Mild aortic valve sclerosis and mild MV sclerosis and regurgitation. She appears euvolemic at this time with no adventitious lung sounds or lower extremity swelling. Monitor volume status Monitor for chest pain/shortness of breath. Subjective Date/time seen: 04/17/22 09:44 Interval history: Very pleasant 86-year-old female with type 2 diabetes mellitus, hypertension, diastolic dysfunciton, and dyslipidemia who presented to the emergency department for evaluation of low sodium levels found on routine labs. She was eating lunch today during my visit. She remains asymptomatic, denies chest pain, shortness of breath, dizziness, confusion, nausea/ vomiting. She has not complaints today. She is very pleasant. Review of Systems Review of Systems: All systems reviewed & are unremarkable except as noted in HPI and below Exam Narrative: GENERAL APPEARANCE: Alert and oriented x 3, in no apparent distress. HEENT: PERRL, EOMI. Sclerae anicteric. Moist mucous membranes. NECK: Supple. No JVD or obvious carotid bruits. RESPIRATORY: Respirations are nonlabored. Breath sounds are equal and clear bilaterally. No wheezes, Rhonchi, or rales. CARDIOVASCULAR: Regular rate and rhythm with normal S1-S2. GASTROINTESTINAL: Soft, flat, and benign. No mass, tenderness, guarding, or rebound. No organomegaly or hernia. Bowel sounds are present. SKIN: Warm, dry, well perfused. Good turgor. No lesions, nodules, or rashes noted. EXTREMITIES: No cyanosis, clubbing, or edema. Radial and pedal pulses intact. NEUROLOGICAL: Alert. Cranial nerves 2-12 are grossly intact. No gross focal deficits to casual conversation. PSYCHIATRIC: Pleasant and cooperative with normal mood and affect. Objective Data Vital Signs Vital Si
[2022-04-17 10:53] LABS: Hematocrit 27.1 % (37.0-47.0); Hemoglobin 9.2 g/dL (12.0-15.0); Mean Corpuscular HGB Conc 33.9 g/dl (32-36); Mean Corpuscular Hemoglobin 30.5 pg (26-34); Mean Corpuscular Volume 89.7 fl (80-100); Mean Platelet Volume 9.6 fl (7.4-10.4); Platelet Count Result 134 k/mm3 (150-375); Red Blood Count 3.02 M/mm3 (4.2-5.4); Red Cell Distribution Width 12.8 % (11.5-14.5); White Blood Count 4.6 K/mm3 (4.5-10.0)
[2022-04-17 11:03] LABS: Alanine Aminotransferase 138 U/L (6-35); Albumin Level 3.5 g/dL (3.5-5.1); Alkaline Phosphatase 50 U/L (38-126); Anion Gap 5 mmol/L (8-16); Aspartate Amino Transferase 120 U/L (14-36); Bilirubin,Total 0.4 mg/dL (0.2-1.3); Blood Urea Nitrogen 20 mg/dL (7-17); Calcium 8.5 mg/dL (8.4-10.2); Carbon Dioxide 24 mmol/L (22-30); Chloride 97 mmol/L (98-107); Estimated CRCL calculation 27 ml/min; Estimated Glomerular Filt Rate 53; Glucose 128 mg/dL (65-110); Potassium 4.3 mmol/L (3.4-5.0); Sodium 126 mmol/L (137-145)
--- NOTE | 2022-04-17 12:11 | PM.PNNEP ---
Progress Note: A&P Additional Plan 1. Surely has chronic kidney disease. Her creatinine is at its baseline. Most likely this is due to hypertension, vascular disease, and diabetes. her creatinine is 1 and GFR is 53. 2. The patient has hyponatremia. Since 2010 she has had sodiums between 130 and 135. however in late 2020 and early 2021 her sodium levels were better. Evaluation from before was negative. Her cortisol level though is low this admission so I will check a Cortrosyn stim test. Her sodium level is very low on admission and overcorrected. She was given DDAVP and free water and her sodium came down to 126 which was the goal. This morning her sodium is 126 again. She may still be under some of the affect of the DDAVP. Will reinstitute fluid restriction [id number]. Check another sodium this afternoon. 3. Diabetes the patient is on her diabetic meds. 4. Hypertension the patient's blood pressure is under good control 5. diastolic dysfunction the patient seems compensated now. Subjective Date/time seen: 04/17/22 12:11 Interval history: Patient feels better today. No chest pain or shortness of breath Review of Systems Cardiovascular: Cardiovascular: Reports no additional cardiovascular complaints Respiratory: Respiratory: Reports no additional respiratory complaints Gastrointestinal: Gastrointestinal: Reports no additional gastrointestinal complaints Genitourinary: Genitourinary: Reports no additional female genitourinary complaints Exam Narrative: WDWN in NAD skin no rash head ncat lungs clear cor reg no rub abd BS+ nontender and soft ext no edema. Objective Data Vital Signs Vital Signs: Vital Signs - 24 hr 04/16/22 14:00 04/16/22 16:00 04/16/22 20:00 Temperature 36.4 C L Pulse Rate 61 52 L 58 L Respiratory Rate 18 Blood Pressure 92/49 L Pulse Oximetry 98 Oxygen Delivery 04/16/22 21:40 04/16/22 22:00 04/17/22 00:00 Temperature 36.6 C Pulse Rate 68 62 49 L Respiratory Rate 16 Blood Pressure 102/52 L Pulse Oximetry 97 Oxygen Delivery 04/17/22 04:00 04/17/22 05:14 04/17/22 09:33 Temperature 36.5 C Pulse Rate 47 L 58 L 60 Respiratory Rate 16 Blood Pressure 115/56 L Pulse Oximetry 97 Oxygen Delivery 04/17/22 08:00 Temperature Pulse Rate 60 Respiratory Rate 16 Blood Pressure Pulse Oximetry 97 Oxygen Delivery Room Air Intake/Output Intake/Output: Intake & Output 04/14/22 04/15/22 04/16/22 04/17/22 23:59 23:59 23:59 23:59 Intake Total 1120 2510 700 Output Total 0 2200 500 Balance 1120 310 200 Meds/Results Medications: Active Medications Generic Name Dose Route Start Last Admin Trade Name Freq PRN Reason Stop Dose Admin Aspirin 81 mg 04/16/22 09:00 04/17/22 09:35 Aspirin 81 Mg Enteric Tablet PO 81 mg DAILY CHELSIE Administration Carvedilol 6.25 mg 04/15/22 22:15 04/17/22 09:33 Carvedilol 6.25 Mg Tablet PO 6.25 mg Q12HR CHELSIE Administration Dextrose 12.5 gm 04/15/22 22:07 Dextrose 50% 25 Gm/50 Ml Syringe IV PUSH PRN PRN Hypoglycemia Protocol Ezetimibe 10 mg 04/16/22 09:00 04/17/22 09:35 Ezetimibe 10 Mg Tablet BY MOUTH 10 mg DAILY CHELSIE Administration Empagliflozin 10 mg 04/16/22 09:30 04/17/22 09:33 Empagliflozin 10 Mg Tablet PO 10 mg DAILY HCELSIE Administration Glucagon 1 mg 04/15/22 22:07 Glucagon For Inj 1 Mg Vial IM PRN PRN Hypoglycemia Protocol Glucose 15 gm 04/15/22 22:07 Glucose Oral Gel 15 Gm Of Glucse In 37.5 Gm Tube PO PRN PRN Hypoglycemia Protocol Dextrose 1,000 mls @ 100 mls/hr 04/15/22 22:07 Dextrose 5% 1,000 Ml IVPB PRN PRN Hypoglycemia Protocol Lisinopril 20 mg 04/16/22 09:00 04/17/22 09:34 Lisinopril 20 Mg Tablet PO 20 mg DAILY CHELSIE Administration Rosuvastatin Calcium 40 mg 04/16/22 09:00 04/17/22 09:35 Rosuvastatin 10 Mg Tabl
[2022-04-17 12:14] LABS: Glucose Point of Care 139 mg/dl (65-105)
[2022-04-17] MEDS: COSYNTROPIN 0.25 MG/ML VIAL IV PUSH (13:03)
[2022-04-17 16:43] LABS: Sodium 125 mmol/L (137-145)
[2022-04-17 17:00] LABS: Glucose Point of Care 159 mg/dl (65-105)
[2022-04-17 21:31] LABS: Sodium 126 mmol/L (137-145)
[2022-04-17 22:08] LABS: Glucose Point of Care 214 mg/dl (65-105)
[2022-04-18] VITALS (10 sets, daily range): BP systolic 105–120; BP diastolic 46–55; PULSE 52–70; RESP 16–18; TEMP 36.2–36.9; O2SAT 97–98
[2022-04-18 01:50] LABS: Sodium 124 mmol/L (137-145)
[2022-04-18 06:33] LABS: Hematocrit 27.6 % (37.0-47.0); Hemoglobin 9.2 g/dL (12.0-15.0); Mean Corpuscular HGB Conc 33.3 g/dl (32-36); Mean Corpuscular Hemoglobin 30.2 pg (26-34); Mean Corpuscular Volume 90.5 fl (80-100); Mean Platelet Volume 10.3 fl (7.4-10.4); Platelet Count Result 146 k/mm3 (150-375); Red Blood Count 3.05 M/mm3 (4.2-5.4); Red Cell Distribution Width 12.7 % (11.5-14.5); White Blood Count 5.9 K/mm3 (4.5-10.0)
[2022-04-18 06:44] LABS: Alanine Aminotransferase 141 U/L (6-35); Albumin Level 3.3 g/dL (3.5-5.1); Alkaline Phosphatase 76 U/L (38-126); Anion Gap 5 mmol/L (8-16); Aspartate Amino Transferase 109 U/L (14-36); Bilirubin,Total 0.3 mg/dL (0.2-1.3); Blood Urea Nitrogen 24 mg/dL (7-17); Calcium 8.6 mg/dL (8.4-10.2); Carbon Dioxide 23 mmol/L (22-30); Chloride 98 mmol/L (98-107); Estimated CRCL calculation 30 ml/min; Estimated Glomerular Filt Rate 52; Glucose 123 mg/dL (65-110); Phosphorus 3.7 mg/dL (2.5-4.5); Potassium 4.3 mmol/L (3.4-5.0); Sodium 126 mmol/L (137-145)
[2022-04-18 08:13] LABS: Glucose Point of Care 115 mg/dl (65-105)
[2022-04-18 09:35] LABS: Sodium 127 mmol/L (137-145)
[2022-04-18] MEDS: lisinopriL 20 MG TABLET PO (09:56)
[2022-04-18] MEDS: ROSUVASTATIN 10 MG TABLET 40 MG BY MOUTH (09:56)
[2022-04-18] MEDS: EZETIMIBE 10 MG TABLET BY MOUTH (09:56)
[2022-04-18] MEDS: carvediloL 6.25 MG TABLET PO ×2 (09:56→21:29)
[2022-04-18] MEDS: ASPIRIN 81 MG ENTERIC TABLET PO (09:57)
[2022-04-18] MEDS: EMPAGLIFLOZIN 10 MG TABLET PO (09:57)
[2022-04-18] MEDS: SODIUM CHLORIDE 3% 240 ML 60 ML IV CONT (10:01)
--- NOTE | 2022-04-18 10:30 | PM.PNNEP ---
Progress Note: A&P Additional Plan 1. Surely has chronic kidney disease. Her creatinine is at its baseline. Most likely this is due to hypertension, vascular disease, and diabetes. her creatinine is 1 and GFR is 53. 2. The patient has hyponatremia. Since 2010 she has had sodiums between 130 and 135. however in late 2020 and early 2021 her sodium levels were better. Evaluation from before was negative. Her cortisol level though is low this admission so I will check a Cortrosyn stim test. Her sodium level is very low on admission and overcorrected. She was given DDAVP and free water and her sodium came down to 126 which was the goal. This morning her sodium is 126 again. She is on fluid restriction of 1500cc. Since her sodium has stabilized I will give her another round of 3% saline. This should get her up to about 130. 3. Diabetes the patient is on her diabetic meds. 4. Hypertension the patient's blood pressure is under good control She is on carvedilol and lisinopril. 5. diastolic dysfunction the patient seems compensated now. Subjective Date/time seen: 04/18/22 10:30 Interval history: ?it's my birthday! ? She was hoping to go home today. The patient feels okay. She is eating well and her bowels are moving. Exam Narrative: WDWN in NAD skin no rash or subQ nodules head ncat lungs clear cor reg no rub or gallop abd BS+ nontender and soft ext no edema. Objective Data Vital Signs Vital Signs: Vital Signs - 24 hr 04/17/22 14:00 04/17/22 12:00 04/17/22 16:00 Temperature 36.4 C L Pulse Rate 61 51 L 61 Respiratory Rate 18 Blood Pressure 147/59 H Pulse Oximetry 98 04/17/22 20:29 04/17/22 22:15 04/17/22 20:00 Temperature 36.3 C L Pulse Rate 63 55 L 56 L Respiratory Rate 18 Blood Pressure 125/58 L Pulse Oximetry 96 04/18/22 00:00 04/18/22 04:00 04/18/22 05:08 Temperature 36.2 C L Pulse Rate 52 L 53 L 53 L Respiratory Rate 18 Blood Pressure 105/50 L Pulse Oximetry 97 04/18/22 09:56 Temperature Pulse Rate 70 Respiratory Rate Blood Pressure Pulse Oximetry Intake/Output Intake/Output: Intake & Output 04/15/22 04/16/22 04/17/22 04/18/22 23:59 23:59 23:59 23:59 Intake Total 1120 2510 1136 100 Output Total 0 2200 1300 1200 Balance 1120 310 164 -1100 Meds/Results Medications: Active Medications Generic Name Dose Route Start Last Admin Trade Name Jeanette PRN Reason Stop Dose Admin Aspirin 81 mg 04/16/22 09:00 04/18/22 09:57 Aspirin 81 Mg Enteric Tablet PO 81 mg DAILY CHELSIE Administration Carvedilol 6.25 mg 04/15/22 22:15 04/18/22 09:56 Carvedilol 6.25 Mg Tablet PO 6.25 mg Q12HR CHELSIE Administration Dextrose 12.5 gm 04/15/22 22:07 Dextrose 50% 25 Gm/50 Ml Syringe IV PUSH PRN PRN Hypoglycemia Protocol Ezetimibe 10 mg 04/16/22 09:00 04/18/22 09:56 Ezetimibe 10 Mg Tablet BY MOUTH 10 mg DAILY CHELSIE Administration Empagliflozin 10 mg 04/16/22 09:30 04/18/22 09:57 Empagliflozin 10 Mg Tablet PO 10 mg DAILY CHELSIE Administration Glucagon 1 mg 04/15/22 22:07 Glucagon For Inj 1 Mg Vial IM PRN PRN Hypoglycemia Protocol Glucose 15 gm 04/15/22 22:07 Glucose Oral Gel 15 Gm Of Glucse In 37.5 Gm Tube PO PRN PRN Hypoglycemia Protocol Dextrose 1,000 mls @ 100 mls/hr 04/15/22 22:07 Dextrose 5% 1,000 Ml IVPB PRN PRN Hypoglycemia Protocol Sodium Chloride 240 mls @ 60 mls/hr 04/18/22 08:45 04/18/22 10:01 Sodium Chloride 3% IV CONT 04/18/22 12:44 60 mls/hr .Q4H ONE Administration Lisinopril 20 mg 04/16/22 09:00 04/18/22 09:56 Lisinopril 20 Mg Tablet PO 20 mg DAILY CHELSIE Administration Rosuvastatin Calcium 40 mg 04/16/22 09:00 04/18/22 09:56 Rosuvastatin 10 Mg Tablet BY MOUTH 40 mg DAILY CHELSIE Administration Sitagliptin Phosphate 100 mg 04/16/22 09:30 04/18/22 09:56 Sitagliptin
--- NOTE | 2022-04-18 10:45 | PM.IMPN ---
Progress Note: A&P Assessment and Plan (1) Hyponatremia: Code(s): E87.1 - Hypo-osmolality and hyponatremia Status: Acute Assessment and Plan: Current sodium 126 (12:36hrs), admission was 119. Etiology is not entirely clear, though patient does report recently starting lasix and increasing her water intake to (6) 12-oz glasses of water a day. She previously did not drink very much water. We have held her lasix at this time. Nephrology has been consulted and their input is greatly appreciated. Random urine sodium 19 Urine Cr 16.5 Urine osmolality pending. TSH WNL Random cortisol 8.14 at noon. Lipid panel shows Tg 97, total chol 108. Glucose 86 04/17 Nephrology will check cortrosyn stimulation test, reinstitute fluid restriction at 1500 CC, and check another sodium in the afternoon. 04/18 patient's a.m. sodium was 127. She will be given about 4 hours of 3% saline today with a recheck of her sodium. She continues fluid restriction at 1200 cc. (2) Chronic kidney disease, stage 3: Code(s): N18.30 - Chronic kidney disease, stage 3 unspecified Status: Acute Assessment and Plan: Creatinine is stable on review of previous labs and will be monitored. (3) Elevated LFTs: Code(s): R79.89 - Other specified abnormal findings of blood chemistry Status: Acute Assessment and Plan: Noted on previous labs and stable. Abdominal exam benign. Hepatitis panel reactive for hepatitis A. Supportive care only at this time. (4) Type 2 diabetes mellitus: Code(s): E11.9 - Type 2 diabetes mellitus without complications Status: Acute Assessment and Plan: Glucose 86 today. Continue empagliflozin. Initiate sliding scale insulin, Accu-Cheks, and hypoglycemic protocol, diabetic diet. Patient reports she is very conscientious about her diet, but was told by her primary she was allowed to have a brownie and ice cream for her birthday on Tuesday. (5) Diastolic dysfunction: Code(s): I51.89 - Other ill-defined heart diseases Status: Acute Assessment and Plan: Patient denies any concerns of chest pain, shortness a breath, orthopnea, PND, syncope, or near syncopal episodes. 04/02/22 Echo showed LVEF of 60-65%, mild increase in left ventricular wall thickness, and abnormal diastolic function of the LV. Mild aortic valve sclerosis and mild MV sclerosis and regurgitation. She continues to be euvolemic at this time with no adventitious lung sounds or lower extremity swelling. Continue to monitor volume status. Monitor for chest pain/shortness of breath. Subjective Date/time seen: 04/18/22 10:45 Interval history: It is the patient's birthday today. She is being visited by her daughter and did consent to discuss her medical care with her daughter in the room. She is doing well today. She has no specific complaints. Exam Narrative: GENERAL APPEARANCE: Alert and oriented x 3, in no apparent distress. HEENT: PERRL, EOMI. Sclerae anicteric. Moist mucous membranes. NECK: Supple. No JVD or obvious carotid bruits. RESPIRATORY: Respirations are nonlabored. Breath sounds are equal and clear bilaterally. No wheezes, Rhonchi, or rales. CARDIOVASCULAR: Regular rate and rhythm with normal S1-S2. GASTROINTESTINAL: Soft, flat, and benign. No mass, tenderness, guarding, or rebound. No organomegaly or hernia. Bowel sounds are present. SKIN: Warm, dry, well perfused. Good turgor. No lesions, nodules, or rashes noted. EXTREMITIES: No cyanosis, clubbing, or edema. Radial and pedal pulses intact. NEUROLOGICAL: Alert. Cranial nerves 2-12 are grossly intact. No gross focal deficits to casual conversation. PSYCHIATRIC: Pleasant and cooperative with normal mood and affect. Objective Data Vital Signs Vital Signs: Vital Signs - 24 hr 04/17/22 14:00 04/17/22 12:00 04/17/22 16:00 Temperature 97.5 F L Pulse Rate 61 51 L 61 Respiratory Rate
[2022-04-18 12:07] LABS: Glucose Point of Care 161 mg/dl (65-105)
[2022-04-18 16:16] LABS: Sodium 131 mmol/L (137-145)
[2022-04-18 18:25] LABS: Glucose Point of Care 200 mg/dl (65-105)
[2022-04-18 23:22] LABS: Glucose Point of Care 161 mg/dl (65-105)
[2022-04-19] VITALS (7 sets, daily range): BP systolic 106–107; BP diastolic 49–53; PULSE 45–67; RESP 14–20; TEMP 36.7–36.8; O2SAT 96
[2022-04-19 06:10] LABS: Hematocrit 27.6 % (37.0-47.0); Hemoglobin 9.2 g/dL (12.0-15.0); Mean Corpuscular HGB Conc 33.3 g/dl (32-36); Mean Corpuscular Hemoglobin 30.5 pg (26-34); Mean Corpuscular Volume 91.4 fl (80-100); Platelet Count Result 155 k/mm3 (150-375); Red Blood Count 3.02 M/mm3 (4.2-5.4); White Blood Count 5.3 K/mm3 (4.5-10.0)
[2022-04-19 06:25] LABS: Alanine Aminotransferase 169 U/L (6-35); Albumin Level 3.4 g/dL (3.5-5.1); Alkaline Phosphatase 79 U/L (38-126); Anion Gap 4 mmol/L (8-16); Aspartate Amino Transferase 123 U/L (14-36); Bilirubin,Total 0.2 mg/dL (0.2-1.3); Blood Urea Nitrogen 25 mg/dL (7-17); Calcium 8.9 mg/dL (8.4-10.2); Carbon Dioxide 24 mmol/L (22-30); Chloride 104 mmol/L (98-107); Estimated CRCL calculation 25 ml/min; Estimated Glomerular Filt Rate 42; Glucose 131 mg/dL (65-110); Phosphorus 3.8 mg/dL (2.5-4.5); Potassium 4.4 mmol/L (3.4-5.0); Sodium 132 mmol/L (137-145)
[2022-04-19 07:48] LABS: Glucose Point of Care 122 mg/dl (65-105)
[2022-04-19] MEDS: ROSUVASTATIN 10 MG TABLET 40 MG BY MOUTH (08:31)
[2022-04-19] MEDS: carvediloL 6.25 MG TABLET PO (08:31)
[2022-04-19] MEDS: EMPAGLIFLOZIN 10 MG TABLET PO (08:33)
[2022-04-19] MEDS: lisinopriL 20 MG TABLET PO (08:33)
[2022-04-19] MEDS: EZETIMIBE 10 MG TABLET BY MOUTH (08:33)
[2022-04-19] MEDS: ASPIRIN 81 MG ENTERIC TABLET PO (08:34)
[2022-04-19 11:15] LABS: Glucose Point of Care 136 mg/dl (65-105)
--- NOTE | 2022-04-19 13:24 | PM.DS ---
DS: Admitting Diagnosis Discharge Date 04/19/2022 1600 Admitting Diagnosis Hyponatremia DS: Discharge Diagnosis Discharge Diagnosis (1) Hyponatremia: Code(s): E87.1 - Hypo-osmolality and hyponatremia Status: Acute Assessment and Plan: 04/19 Current sodium 132, admission was 119. Etiology is not entirely clear, though patient does report recently starting lasix and increasing her water intake to (6) 12-oz glasses of water a day. She previously did not drink very much water. We have held her lasix upon discharge until she follows up with primary care and advised her only to drink water when she is thirsty and not otherwise. Nephrology consulted on this case and we do greatly appreciate their assistance. Random urine sodium 19 Urine Cr 16.5 Urine osmolality pending. TSH WNL Random cortisol 8.14 at noon. Lipid panel shows Tg 97, total chol 108. Glucose 86 04/17 Nephrology will check cortrosyn stimulation test, reinstitute fluid restriction at 1500 CC, and check another sodium in the afternoon. 04/18 patient's a.m. sodium was 127. She will be given about 4 hours of 3% saline today with a recheck of her sodium. She continues fluid restriction at 1200 cc. (2) Chronic kidney disease, stage 3: Code(s): N18.30 - Chronic kidney disease, stage 3 unspecified Status: Acute Assessment and Plan: Creatinine is stable on review of previous labs and will be monitored by PCP (3) Elevated LFTs: Code(s): R79.89 - Other specified abnormal findings of blood chemistry Status: Acute Assessment and Plan: Noted on previous labs and stable. Abdominal exam benign. Hepatitis panel reactive for hepatitis A. Supportive care only at this time. (4) Type 2 diabetes mellitus: Code(s): E11.9 - Type 2 diabetes mellitus without complications Status: Acute Assessment and Plan: Glucose 86 today. Continue home meds upon discharge. (5) Diastolic dysfunction: Code(s): I51.89 - Other ill-defined heart diseases Status: Acute Assessment and Plan: Patient denies any concerns of chest pain, shortness a breath, orthopnea, PND, syncope, or near syncopal episodes. 04/02/22 Echo showed LVEF of 60-65%, mild increase in left ventricular wall thickness, and abnormal diastolic function of the LV. Mild aortic valve sclerosis and mild MV sclerosis and regurgitation. She continues to be euvolemic at this time with no adventitious lung sounds or lower extremity swelling. DS: Summary Hospital Course Reason for hospitalization: Hyponatremia Hospital Course: See above for full hospital course. Status at Discharge Cognitive/behavioral status at discharge: Patient at her baseline Time Spent with Patient Time attestation: Total time spent providing and/or coordinating discharge services: 35 minutes. Exam Narrative: GENERAL APPEARANCE: Alert and oriented x 3, in no apparent distress. HEENT: PERRL, EOMI. Sclerae anicteric. Moist mucous membranes. NECK: Supple. No JVD or obvious carotid bruits. RESPIRATORY: Respirations are nonlabored. Breath sounds are equal and clear bilaterally. No wheezes, Rhonchi, or rales. CARDIOVASCULAR: Regular rate and rhythm with normal S1-S2. GASTROINTESTINAL: Soft, flat, and benign. No mass, tenderness, guarding, or rebound. No organomegaly or hernia. Bowel sounds are present. SKIN: Warm, dry, well perfused. Good turgor. No lesions, nodules, or rashes noted. EXTREMITIES: No cyanosis, clubbing, or edema. Radial and pedal pulses intact. NEUROLOGICAL: Alert. Cranial nerves 2-12 are grossly intact. No gross focal deficits to casual conversation. PSYCHIATRIC: Pleasant and cooperative with normal mood and affect. DS: Data Data Completed and Pending Labs on day of discharge: Labs from last 24 hours 04/19/22 04/19/22 04/19/22 11:11 07:35 06:01 WBC RBC Hgb Hct MCV MCH MCHC
[2022-04-19 13:44] LABS: Osmolality, Urine 160 mOsm/kg (50-1200)
--- NOTE | 2022-04-19 15:26 | PM.PNNEP ---
Progress Note: A&P Additional Plan 1. Surely has chronic kidney disease. Her creatinine is at its baseline. Most likely this is due to hypertension, vascular disease, and diabetes. her creatinine is doing pretty well. 2. The patient has hyponatremia. Since 2010 she has had sodiums between 130 and 135. however in late 2020 and early 2021 her sodium levels were better. Evaluation from before was negative. Her cortisol level though is low this admission so I will check a Cortrosyn stim test. Her sodium level is very low on admission and overcorrected. She was given DDAVP and free water and her sodium came down to 126 which was the goal. This morning her sodium is One hundred thirty-two She is on fluid restriction of 1500cc. I discussed fluid restriction with her. She should stick to about 6 cups per day. Basically if she is thirsty she should drink but not if she is not. Dr. Suh can follow her as an outpatient or if he/she would like to come to my office she can make an appointment. 3. Diabetes the patient is on her diabetic meds. 4. Hypertension the patient's blood pressure is under good control She is on carvedilol and lisinopril. 5. diastolic dysfunction the patient seems compensated now. Subjective Date/time seen: 04/19/22 15:26 Interval history: Patient feels okay today. She is excited that her sodium is up to 132. No chest pain or shortness of breath. Eating okay. Review of Systems Cardiovascular: Cardiovascular: Reports no additional cardiovascular complaints Respiratory: Respiratory: Reports no additional respiratory complaints Gastrointestinal: Gastrointestinal: Reports no additional gastrointestinal complaints Genitourinary: Genitourinary: Reports no additional female genitourinary complaints Exam Narrative: WDWN in NAD skin no rash or subQ nodules head ncat lungs clear bilaterally cor reg no rub or gallop abd BS+ nontender and soft ext no edema or cyanosis. Objective Data Vital Signs Vital Signs: Vital Signs - 24 hr 04/18/22 19:31 04/18/22 21:29 04/18/22 22:00 Temperature 36.3 C L 36.6 C Pulse Rate 67 62 66 Respiratory Rate 18 16 Blood Pressure 116/46 L 120/55 L Pulse Oximetry 97 97 Oxygen Delivery 04/18/22 20:05 04/19/22 06:00 04/19/22 04:00 Temperature 36.8 C Pulse Rate 66 58 L 67 Respiratory Rate 16 14 Blood Pressure 107/49 L Pulse Oximetry 97 96 Oxygen Delivery Room Air 04/19/22 08:07 04/19/22 04:00 04/19/22 08:31 Temperature Pulse Rate 56 L 45 L 53 L Respiratory Rate Blood Pressure Pulse Oximetry Oxygen Delivery 04/19/22 08:00 04/19/22 12:00 04/19/22 08:00 Temperature Pulse Rate 52 L 49 L Respiratory Rate Blood Pressure Pulse Oximetry 96 Oxygen Delivery Room Air 04/19/22 14:35 Temperature 36.7 C Pulse Rate 57 L Respiratory Rate 20 Blood Pressure 106/53 L Pulse Oximetry 96 Oxygen Delivery Intake/Output Intake/Output: Intake & Output 04/16/22 04/17/22 04/18/22 04/19/22 23:59 23:59 23:59 23:59 Intake Total 2510 1136 662 340 Output Total 2200 1300 3650 1550 Balance 310 -048 -2988 -0880 Meds/Results Medications: Active Medications Generic Name Dose Route Start Last Admin Trade Name Freq PRN Reason Stop Dose Admin Aspirin 81 mg 04/16/22 09:00 04/19/22 08:34 Aspirin 81 Mg Enteric Tablet PO 81 mg DAILY CHELSIE Administration Carvedilol 6.25 mg 04/15/22 22:15 04/19/22 08:31 Carvedilol 6.25 Mg Tablet PO 6.25 mg Q12HR CHELSIE Administration Dextrose 12.5 gm 04/15/22 22:07 Dextrose 50% 25 Gm/50 Ml Syringe IV PUSH PRN PRN Hypoglycemia Protocol Ezetimibe 10 mg 04/16/22 09:00 04/19/22 08:33 Ezetimibe 10 Mg Tablet BY MOUTH 10 mg DAILY CHELSIE Administration Empagliflozin 10 mg 04/16/22 09:30 04/19/22 08:33 Empagliflozin 10 Mg Tablet PO 10 mg DAILY CHELSIE Administration Glucagon 1 mg 04/15/22 22:07
== END 2022-04-19 17:00 | disposition home or self-care (01) | DRG 641 ==
LOC: ANHED 13:42 → ANH3MEDSUR 15:10
PROVIDERS: Emergency Medicine; Internal Medicine Nephrology; Physician Assistant; Admitting Provider Student in an Organized Health Care Education/Training Program; Emergency Provider Emergency Medicine; PCP Internal Medicine; Visit Provider Student in an Organized Health Care Education/Training Program
DX: E87.1 Hypo-osmolality and hyponatremia (principal); N18.30 Chronic kidney disease, stage 3 unspecified; R79.89 Other specified abnormal findings of blood chemistry; I51.89 Other ill-defined heart diseases; E11.22 Type 2 diabetes mellitus with diabetic chronic kidney disease; E78.5 Hyperlipidemia, unspecified; I12.9 Hypertensive chronic kidney disease with stage 1 through stage 4 chronic kidney disease, or unspecified chronic kidney disease; Z79.899 Other long term (current) drug therapy; Z79.82 Long term (current) use of aspirin
CPT/HCPCS: 36415; 80048; 80053; 80061; 80074; 82533; 82570; 82948; 83735; 83930; 83935; 84100; 84295; 84300; 84443; 85025; 85027; 96360; 96361; 96365; 96366; 96375; 99285; A9270; G0378; J0834; J2597; J7030; J7070; J7131

== ENCOUNTER 2022-07-22 10:04 | Outpatient (CLI) | payer MEDICARE, SELFPAY ==
[2022-07-22 11:02] LABS: Alanine Aminotransferase 115 U/L (6-35); Albumin Level 4.6 g/dL (3.5-5.1); Alkaline Phosphatase 67 U/L (38-126); Anion Gap 11 mmol/L (8-16); Aspartate Amino Transferase 99 U/L (14-36); Bilirubin,Total 0.7 mg/dL (0.2-1.3); Blood Urea Nitrogen 18 mg/dL (7-17); Calcium 9.8 mg/dL (8.4-10.2); Carbon Dioxide 27 mmol/L (22-30); Chloride 104 mmol/L (98-107); Cholesterol 140 mg/dL (0-200); Estimated Glomerular Filt Rate 47; Glucose 106 mg/dL (65-110); HDL Direct 48 mg/dL; Potassium 4.7 mmol/L (3.4-5.0); Sodium 142 mmol/L (137-145); Triglycerides 88 mg/dL (<150)
[2022-07-22 11:13] LABS: LDL Cholesterol Direct 67 mg/dL
[2022-07-22 11:56] LABS: Free T4 Free Thyroxine 0.99 ng/mL (0.78-2.19); Vitamin D 25 Hydroxy 51.3 ng/mL
[2022-07-22 12:00] LABS: Hemoglobin A1C 6.1 % (<5.7)
== END 2022-07-22 10:05 | disposition home or self-care (01) ==
PROVIDERS: PCP Internal Medicine; Visit Provider Internal Medicine
DX: I50.9 Heart failure, unspecified (principal); E11.22 Type 2 diabetes mellitus with diabetic chronic kidney disease; I12.9 Hypertensive chronic kidney disease with stage 1 through stage 4 chronic kidney disease, or unspecified chronic kidney disease; N18.2 Chronic kidney disease, stage 2 (mild); E78.5 Hyperlipidemia, unspecified; Z79.899 Other long term (current) drug therapy
CPT/HCPCS: 36415; 80053; 80061; 82306; 83036; 84439; 84443

== ENCOUNTER 2022-12-07 09:37 | Outpatient (CLI) | payer MEDICARE, SELFPAY ==
[2022-12-07 10:01] LABS: Hemoglobin A1C 6.3 % (<5.7)
[2022-12-07 10:07] LABS: Alanine Aminotransferase 24 U/L (6-35); Albumin Level 4.6 g/dL (3.5-5.1); Alkaline Phosphatase 67 U/L (38-126); Anion Gap 7 mmol/L (8-16); Aspartate Amino Transferase 39 U/L (14-36); Bilirubin,Total 0.8 mg/dL (0.2-1.3); Blood Urea Nitrogen 23 mg/dL (7-17); Carbon Dioxide 28 mmol/L (22-30); Chloride 94 mmol/L (98-107); Cholesterol 303 mg/dL (0-200); Estimated Glomerular Filt Rate 39; Glucose 103 mg/dL (65-110); HDL Direct 50 mg/dL; Sodium 129 mmol/L (137-145); Triglycerides 124 mg/dL (<150)
[2022-12-07 10:18] LABS: LDL Cholesterol Direct 167 mg/dL
[2022-12-07 10:22] LABS: Vitamin D 25 Hydroxy 36.6 ng/mL
== END 2022-12-07 09:38 | disposition home or self-care (01) ==
LOC: ANHLAB 09:38
PROVIDERS: PCP Internal Medicine; Visit Provider Internal Medicine
DX: E55.9 Vitamin D deficiency, unspecified (principal); E78.5 Hyperlipidemia, unspecified; I10 Essential (primary) hypertension; E11.9 Type 2 diabetes mellitus without complications
CPT/HCPCS: 36415; 80053; 80061; 82306; 83036

== ENCOUNTER 2023-02-07 09:36 | Outpatient (CLI) | payer MEDICARE, SELFPAY ==
[2023-02-07 10:13] LABS: Alanine Aminotransferase 109 U/L (6-35); Albumin Level 4.7 g/dL (3.5-5.1); Alkaline Phosphatase 59 U/L (38-126); Anion Gap 11 mmol/L (8-16); Aspartate Amino Transferase 102 U/L (14-36); Blood Urea Nitrogen 31 mg/dL (7-17); Calcium 9.2 mg/dL (8.4-10.2); Carbon Dioxide 27 mmol/L (22-30); Chloride 98 mmol/L (98-107); Cholesterol 150 mg/dL (0-200); Estimated Glomerular Filt Rate 36; Glucose 94 mg/dL (65-110); HDL Direct 41 mg/dL; Potassium 4.8 mmol/L (3.4-5.0); Sodium 136 mmol/L (137-145); Triglycerides 182 mg/dL (<150)
[2023-02-07 10:24] LABS: LDL Cholesterol Direct 61 mg/dL
== END 2023-02-07 09:37 | disposition home or self-care (01) ==
PROVIDERS: PCP Internal Medicine; Visit Provider Internal Medicine
DX: E78.5 Hyperlipidemia, unspecified (principal); I10 Essential (primary) hypertension
CPT/HCPCS: 36415; 80053; 80061

== ENCOUNTER 2023-05-16 08:32 | Outpatient (CLI) | payer MEDICARE, SELFPAY ==
[2023-05-16 09:04] LABS: Basophils Percent Auto 0.7 % (0.2-1.2); Eosinophils Absolute Auto 0.2 K/mm3 (0-0.3); Eosinophils Percent Auto 3.5 % (0-4.4); Hematocrit 39.2 % (37.0-47.0); Hemoglobin 12.7 g/dL (12.0-15.0); Immature Granulocyte Absolute 0.02 K/mm3 (0.00-0.031); Immature Granulocyte Percent A 0.3 % (0-0.5); Lymphocytes Absolute Auto 2.01 K/mm3 (0.9-3.2); Lymphocytes Percent Auto 35.1 % (18.3-44.2); Mean Corpuscular HGB Conc 32.4 g/dl (32-36); Mean Corpuscular Volume 92.5 fl (80-100); Mean Platelet Volume 10.1 fl (7.4-10.4); Monocytes Absolute Auto 0.5 K/mm3 (0.1-0.6); Monocytes Percent Auto 8.2 % (2.6-8.5); Neutrophils Percent Auto 52.2 % (45.5-73.1); Platelet Count Result 187 k/mm3 (150-375); Red Blood Count 4.24 M/mm3 (4.2-5.4); Red Cell Distribution Width 12.7 % (11.5-14.5); White Blood Count 5.7 K/mm3 (4.5-10.0)
[2023-05-16 09:14] LABS: Alanine Aminotransferase 140 U/L (6-35); Albumin Level 4.6 g/dL (3.5-5.1); Alkaline Phosphatase 73 U/L (38-126); Anion Gap 7 mmol/L (8-16); Aspartate Amino Transferase 90 U/L (14-36); Bilirubin,Total 0.6 mg/dL (0.2-1.3); Blood Urea Nitrogen 28 mg/dL (7-17); Calcium 9.5 mg/dL (8.4-10.2); Carbon Dioxide 30 mmol/L (22-30); Chloride 101 mmol/L (98-107); Cholesterol 145 mg/dL (0-200); Estimated Glomerular Filt Rate 39; Glucose 118 mg/dL (65-110); HDL Direct 35 mg/dL; Potassium 5.1 mmol/L (3.4-5.0); Sodium 138 mmol/L (137-145); Triglycerides 188 mg/dL (<150)
[2023-05-16 09:16] LABS: Hemoglobin A1C 7.5 % (<5.7)
[2023-05-16 09:27] LABS: LDL Cholesterol Direct 59 mg/dL
[2023-05-16 09:39] LABS: Appearance Urine Turbid (Clear); Bacteria Urine 4+ /hpf; Bilirubin Urine Negative (Negative); Blood Urine Trace (Negative); Color Urine Yellow (Yellow); Glucose Urine UA 3+ mg/dL (Negative); Ketones Urine Negative (Negative); Leukocyte Esterase Ur 2+ LEU/UL (Negative); Nitrate Urine Positive (Negative); Protein Urine Negative (Negative); RBC Urine 0-2 /hpf (0-2); Specific Grav Ur 1.016 (1.001-1.035); Squamous Epithelial Cell Urine Few /hpf (Few); Urobilinogen Urine 0.2 mg/dL (<2.0); WBC Urine >100 /hpf
[2023-05-16 09:51] LABS: Vitamin D 25 Hydroxy 42.3 ng/mL
[2023-05-16 10:25] LABS: Add Urine Microscopic? YES
== END 2023-05-16 08:33 | disposition home or self-care (01) ==
PROVIDERS: PCP Internal Medicine; Visit Provider Internal Medicine
DX: E11.9 Type 2 diabetes mellitus without complications (principal); E55.9 Vitamin D deficiency, unspecified; E78.5 Hyperlipidemia, unspecified; Z79.899 Other long term (current) drug therapy; I10 Essential (primary) hypertension
CPT/HCPCS: 36415; 80053; 80061; 81001; 82306; 83036; 85025; 87077; 87086; 87186

== ENCOUNTER 2023-10-03 09:55 | Outpatient (CLI) | payer MEDICARE, SELFPAY ==
[2023-10-03 10:32] LABS: Basophils Percent Auto 0.4 % (0.2-1.2); Eosinophils Absolute Auto 0.1 K/mm3 (0-0.3); Eosinophils Percent Auto 2.6 % (0-4.4); Hematocrit 38.5 % (37.0-47.0); Hemoglobin 12.8 g/dL (12.0-15.0); Immature Granulocyte Absolute 0.01 K/mm3 (0.00-0.031); Immature Granulocyte Percent A 0.2 % (0-0.5); Lymphocytes Absolute Auto 2.21 K/mm3 (0.9-3.2); Lymphocytes Percent Auto 41.1 % (18.3-44.2); Mean Corpuscular HGB Conc 33.2 g/dl (32-36); Mean Corpuscular Hemoglobin 30.8 pg (26-34); Mean Corpuscular Volume 92.8 fl (80-100); Mean Platelet Volume 10.5 fl (7.4-10.4); Monocytes Absolute Auto 0.4 K/mm3 (0.1-0.6); Monocytes Percent Auto 7.8 % (2.6-8.5); Neutrophils Absolute Auto 2.6 K/mm3 (1.3-6.7); Neutrophils Percent Auto 47.9 % (45.5-73.1); Platelet Count Result 144 k/mm3 (150-375); Red Blood Count 4.15 M/mm3 (4.2-5.4); Red Cell Distribution Width 11.5 % (11.5-14.5); White Blood Count 5.4 K/mm3 (4.5-10.0)
[2023-10-03 10:36] LABS: Hemoglobin A1C 7.3 % (<5.7)
[2023-10-03 10:43] LABS: Alanine Aminotransferase 96 U/L (6-35); Albumin Level 4.5 g/dL (3.5-5.1); Alkaline Phosphatase 56 U/L (38-126); Anion Gap 14 mmol/L (8-16); Aspartate Amino Transferase 91 U/L (14-36); Bilirubin,Total 0.7 mg/dL (0.2-1.3); Blood Urea Nitrogen 29 mg/dL (7-17); Calcium 9.8 mg/dL (8.4-10.2); Carbon Dioxide 23 mmol/L (22-30); Chloride 100 mmol/L (98-107); Cholesterol 131 mg/dL (0-200); Estimated Glomerular Filt Rate 33; Glucose 102 mg/dL (65-110); HDL Direct 37 mg/dL; Sodium 137 mmol/L (137-145); Triglycerides 154 mg/dL (<150)
[2023-10-03 10:53] LABS: LDL Cholesterol Direct 60 mg/dL
[2023-10-03 10:56] LABS: Appearance Urine Turbid (Clear); Bacteria Urine 4+ /hpf; Bilirubin Urine Negative (Negative); Blood Urine 1+ (Negative); Color Urine Yellow (Yellow); Glucose Urine UA 3+ mg/dL (Negative); Granular Casts Urine Present /lpf; Ketones Urine Trace mg/dL (Negative); Leukocyte Esterase Ur 3+ LEU/UL (Negative); Nitrate Urine Negative (Negative); Protein Urine 1+ mg/dL (Negative); RBC Urine 0-2 /hpf (0-2); Specific Grav Ur 1.014 (1.001-1.035); Squamous Epithelial Cell Urine Moderate /hpf (Few); Urobilinogen Urine 0.2 mg/dL (<2.0); WBC Clumps Urine Present /HPF; WBC Urine >100 /hpf; pH Urine 5.5 (5.0-9.0)
[2023-10-03 10:58] LABS: Add Urine Microscopic? YES
[2023-10-03 11:03] LABS: Free T4 Free Thyroxine 1.15 ng/mL (0.78-2.19)
== END 2023-10-03 09:56 | disposition home or self-care (01) ==
PROVIDERS: PCP Internal Medicine; Visit Provider Internal Medicine
DX: E78.5 Hyperlipidemia, unspecified (principal); Z79.899 Other long term (current) drug therapy; Z13.29 Encounter for screening for other suspected endocrine disorder; E11.9 Type 2 diabetes mellitus without complications; I10 Essential (primary) hypertension
CPT/HCPCS: 36415; 80053; 80061; 81001; 83036; 84439; 84443; 85025; 87077; 87086; 87186

== ENCOUNTER 2024-02-17 09:10 | Outpatient (CLI) | payer MEDICARE, SELFPAY ==
[2024-02-17 10:23] LABS: Hemoglobin A1C 8.4 % (<5.7)
[2024-02-17 10:25] LABS: Alanine Aminotransferase 109 U/L (6-35); Albumin Level 4.6 g/dL (3.5-5.1); Alkaline Phosphatase 69 U/L (38-126); Anion Gap 10 mmol/L (4-12); Aspartate Amino Transferase 68 U/L (14-36); Bilirubin,Total 0.7 mg/dL (0.2-1.3); Blood Urea Nitrogen 38 mg/dL (7-17); Calcium 9.9 mg/dL (8.4-10.2); Carbon Dioxide 23 mmol/L (22-30); Chloride 107 mmol/L (98-107); Cholesterol 124 mg/dL (0-200); Estimated Glomerular Filt Rate 21; Glucose 139 mg/dL (65-110); HDL Direct 32 mg/dL; Potassium 4.6 mmol/L (3.4-5.0); Sodium 140 mmol/L (137-145); Triglycerides 210 mg/dL (<150)
[2024-02-17 10:36] LABS: LDL Cholesterol Direct 63 mg/dL
[2024-02-17 10:45] LABS: Free T4 Free Thyroxine 1.18 ng/mL (0.78-2.19); Vitamin D 25 Hydroxy 25.5 ng/mL
== END 2024-02-17 09:11 | disposition home or self-care (01) ==
PROVIDERS: PCP Internal Medicine; Visit Provider Internal Medicine
DX: E55.9 Vitamin D deficiency, unspecified (principal); Z79.899 Other long term (current) drug therapy; I10 Essential (primary) hypertension; E11.9 Type 2 diabetes mellitus without complications; Z13.29 Encounter for screening for other suspected endocrine disorder; E78.5 Hyperlipidemia, unspecified; E11.22 Type 2 diabetes mellitus with diabetic chronic kidney disease
CPT/HCPCS: 36415; 80053; 80061; 82306; 83036; 84439; 84443

== ENCOUNTER 2024-03-01 11:35 | Outpatient (CLI) | payer MEDICARE, SELFPAY ==
--- NOTE | ~2024-03-01 | XR_ITS ---
XR chest 2V 03/01/2024 11:53 Indication: Cough, shortness of breath and weakness Procedure: 2 view chest Comparison: 01/27/2022 Findings: There is a focal opacity in the right lung base. Correlation with CT recommended to exclude parenchymal nodule. There is also a smaller ill-defined nodular opacity of the left lung base. No si gnificant effusion, edema or pneumothorax. No acute osseous abnormality. Impression: 1: Ill-defined nodular opacities overlying the lower thorax bilaterally. Recommend correlation with C T to exclude underlying parenchymal mass. Reviewed, dictated and finalized at location B. Impression: 1: Ill-defined nodular opacities overlying the lower thorax bilaterally. Recomm end correlation with CT to exclude underlying parenchymal mass.
[2024-03-01 11:48] LABS: Basophils Percent Auto 0.7 % (0.2-1.2); Eosinophils Percent Auto 0.5 % (0-4.4); Hematocrit 38.7 % (37.0-47.0); Hemoglobin 12.7 g/dL (12.0-15.0); Immature Granulocyte Absolute 0.01 K/mm3 (0.00-0.031); Immature Granulocyte Percent A 0.2 % (0-0.5); Lymphocytes Absolute Auto 1.91 K/mm3 (0.9-3.2); Lymphocytes Percent Auto 32.1 % (18.3-44.2); Mean Corpuscular HGB Conc 32.8 g/dl (32-36); Mean Corpuscular Hemoglobin 29.7 pg (26-34); Mean Corpuscular Volume 90.6 fl (80-100); Mean Platelet Volume 10.5 fl (7.4-10.4); Monocytes Absolute Auto 0.5 K/mm3 (0.1-0.6); Monocytes Percent Auto 8.6 % (2.6-8.5); Neutrophils Absolute Auto 3.5 K/mm3 (1.3-6.7); Neutrophils Percent Auto 57.9 % (45.5-73.1); Platelet Count Result 214 k/mm3 (150-375); Red Blood Count 4.27 M/mm3 (4.2-5.4); Red Cell Distribution Width 12.3 % (11.5-14.5)
[2024-03-01 12:15] LABS: Bacteria Urine 4+ /hpf; Budding Yeast Urine Present /hpf; Need Manual Microscopic Reviewed; Non Pathogenic Casts 0-2; RBC Urine >100 /hpf (0-2); Squamous Epithelial Cell Urine Moderate /hpf (Few); WBC Clumps Urine Present /HPF; WBC Urine >100 /hpf (0-3)
[2024-03-01 12:17] LABS: Appearance Urine Turbid (Clear); Bilirubin Urine Negative (Negative); Blood Urine 3+ (Negative); Color Urine Brown (Yellow); Glucose Urine UA 3+ mg/dL (Negative); Ketones Urine Negative (Negative); Leukocyte Esterase Ur 3+ LEU/UL (Negative); Nitrate Urine Positive (Negative); Protein Urine 3+ mg/dL (Negative); Specific Grav Ur 1.017 (1.001-1.035); Urobilinogen Urine 0.2 mg/dL (<2.0)
[2024-03-01 12:18] LABS: Add Urine Microscopic? YES
== END 2024-03-01 11:36 | disposition home or self-care (01) ==
LOC: ANHLAB 11:35
PROVIDERS: PCP Internal Medicine; Visit Provider Internal Medicine
DX: R30.0 Dysuria (principal); J06.9 Acute upper respiratory infection, unspecified; R05.9 Cough, unspecified; R09.89 Other specified symptoms and signs involving the circulatory and respiratory systems
CPT/HCPCS: 36415; 71046; 81001; 85025; 87077; 87086; 87088; 87186

== ENCOUNTER 2024-03-08 08:59 | Outpatient (CLI) | payer MEDICARE, SELFPAY ==
--- NOTE | ~2024-03-08 | XR_ITS ---
XR chest 2V 03/08/2024 09:17 Indication: Cough. Pneumonia. Procedure: 2 view chest Comparison: Comparison to multiple prior studies sequentially, with oldest reviewed study dated 01/03. Findings: Persistent nodular opacity right lung base, most likely a prominent nipple shadow. Recommen d correlation with repeat chest x-ray with nipple marker. No focal pneumonia, edema, pleural effusion or pneumothorax. No acute osseous abnormality. Nodular density in the left lung base seen on prior e xamination not appreciated on the current study. Impression: 1: Persistent nodular density right lung base, most likely prominent nipple shadow. Recommend correla tion with nipple marker. Reviewed, dictated and finalized at location B. Impression: 1: Persistent nodular density right lung base, most likely prominent nipple sha beni. Recommend correlation with nipple marker.
== END 2024-03-08 09:00 | disposition home or self-care (01) ==
PROVIDERS: PCP Internal Medicine; Visit Provider Internal Medicine
DX: R05.9 Cough, unspecified (principal); R06.02 Shortness of breath; R91.8 Other nonspecific abnormal finding of lung field
CPT/HCPCS: 71046

== ENCOUNTER 2024-03-15 08:39 | Outpatient (CLI) | payer MEDICARE, SELFPAY ==
--- NOTE | ~2024-03-15 | XR_ITS ---
Clinical Indication: Abnormal findings on diagnostic imaging PA and lateral views of the chest: Comparison: 03/08/2024 Findings: Probable linear scarring right lung base. Suspected underlying COPD. Cardiomediastinal taya houette is within normal limits. Bones and soft tissues are unremarkable. Impression: Probable COPD and linear scarring right lung base. Reviewed, dictated and finalized at location . Impression: Probable COPD and linear scarring right lung base.
== END 2024-03-15 08:40 | disposition home or self-care (01) ==
PROVIDERS: PCP Internal Medicine; Visit Provider Internal Medicine
DX: R93.89 Abnormal findings on diagnostic imaging of other specified body structures (principal)
CPT/HCPCS: 71046

== ENCOUNTER 2024-04-04 08:49 | Outpatient (CLI) | payer MEDICARE, SELFPAY ==
[2024-04-04 09:42] LABS: Basophils Percent Auto 0.5 % (0.2-1.2); Eosinophils Absolute Auto 0.1 K/mm3 (0-0.3); Eosinophils Percent Auto 0.8 % (0-4.4); Hematocrit 32.7 % (37.0-47.0); Hemoglobin 10.7 g/dL (12.0-15.0); Immature Granulocyte Absolute 0.06 K/mm3 (0.00-0.031); Immature Granulocyte Percent A 0.7 % (0-0.5); Lymphocytes Percent Auto 18.6 % (18.3-44.2); Mean Corpuscular HGB Conc 32.7 g/dl (32-36); Mean Corpuscular Hemoglobin 29.8 pg (26-34); Mean Corpuscular Volume 91.1 fl (80-100); Monocytes Absolute Auto 0.6 K/mm3 (0.1-0.6); Monocytes Percent Auto 7.4 % (2.6-8.5); Neutrophils Absolute Auto 6.2 K/mm3 (1.3-6.7); Platelet Count Result 266 k/mm3 (150-375); Red Blood Count 3.59 M/mm3 (4.2-5.4); Red Cell Distribution Width 14.2 % (11.5-14.5); White Blood Count 8.6 K/mm3 (4.5-10.0)
[2024-04-04 09:58] LABS: Alanine Aminotransferase 107 U/L (6-35); Albumin Level 3.7 g/dL (3.5-5.1); Alkaline Phosphatase 106 U/L (38-126); Anion Gap 12 mmol/L (4-12); Aspartate Amino Transferase 45 U/L (14-36); Bilirubin,Total 0.5 mg/dL (0.2-1.3); Blood Urea Nitrogen 62 mg/dL (7-17); Calcium 9.2 mg/dL (8.4-10.2); Carbon Dioxide 19 mmol/L (22-30); Chloride 105 mmol/L (98-107); Cholesterol 89 mg/dL (0-200); Estimated Glomerular Filt Rate 20; Glucose 254 mg/dL (65-110); HDL Direct 18 mg/dL; Potassium 4.5 mmol/L (3.4-5.0); Sodium 136 mmol/L (137-145); Triglycerides 192 mg/dL (<150)
[2024-04-04 10:02] LABS: Iron 96 ug/dL (37-170)
[2024-04-04 10:06] LABS: NT Pro B Type Natriuretic Pept 724 pg/mL (19.9-100)
[2024-04-04 10:10] LABS: LDL Cholesterol Direct 48 mg/dL
[2024-04-04 10:16] LABS: Percent Iron Saturation 28 % (20-50)
[2024-04-04 10:19] LABS: Free T4 Free Thyroxine 1.21 ng/mL (0.78-2.19)
[2024-04-04 10:28] LABS: Total Triiodothyronine (T3) 0.67 NG/ML (0.97-1.69)
[2024-04-04 10:29] LABS: Hemoglobin A1C 10.2 % (<5.7)
== END 2024-04-04 08:50 | disposition home or self-care (01) ==
PROVIDERS: PCP Internal Medicine; Visit Provider Internal Medicine Cardiovascular Disease
DX: Z13.6 Encounter for screening for cardiovascular disorders (principal); J90 Pleural effusion, not elsewhere classified; D64.9 Anemia, unspecified; I34.0 Nonrheumatic mitral (valve) insufficiency; I12.9 Hypertensive chronic kidney disease with stage 1 through stage 4 chronic kidney disease, or unspecified chronic kidney disease; N18.9 Chronic kidney disease, unspecified; E11.9 Type 2 diabetes mellitus without complications; R07.9 Chest pain, unspecified; R06.02 Shortness of breath; I50.9 Heart failure, unspecified
CPT/HCPCS: 36415; 80053; 80061; 82728; 83036; 83540; 83550; 83880; 84439; 84443; 84480; 85025

== ENCOUNTER 2024-05-28 09:44 | Outpatient (CLI) | payer MEDICARE, SELFPAY ==
[2024-05-28 10:39] LABS: Appearance Urine Turbid (Clear); Bacteria Urine 4+ /hpf; Bilirubin Urine Negative (Negative); Blood Urine 3+ (Negative); Glucose Urine UA 3+ mg/dL (Negative); Ketones Urine Negative (Negative); Leukocyte Esterase Ur 3+ LEU/UL (Negative); Nitrate Urine Negative (Negative); Non Pathogenic Casts 0-2; Protein Urine 2+ mg/dL (Negative); RBC Urine >100 /hpf (0-2); Squamous Epithelial Cell Urine Occasional /hpf (Few); WBC Urine >100 /hpf (0-3); pH Urine 5.5 (5.0-9.0)
[2024-05-28 10:41] LABS: Hematocrit 33.8 % (37.0-47.0); Hemoglobin 10.6 g/dL (12.0-15.0); Mean Corpuscular HGB Conc 31.4 g/dl (32-36); Mean Corpuscular Hemoglobin 30.7 pg (26-34); Mean Platelet Volume 10.2 fl (7.4-10.4); Platelet Count Result 225 k/mm3 (150-375); Red Blood Count 3.45 M/mm3 (4.2-5.4); Red Cell Distribution Width 13.3 % (11.5-14.5); White Blood Count 7.6 K/mm3 (4.5-10.0)
[2024-05-28 10:41] LABS: Add Urine Microscopic? YES; Color Urine Amber (Yellow)
[2024-05-28 10:52] LABS: Need Manual Microscopic Reviewed; WBC Clumps Urine Present /HPF
[2024-05-28 10:53] LABS: Albumin Level 4.3 g/dL (3.5-5.1); Anion Gap 11 mmol/L (4-12); Blood Urea Nitrogen 35 mg/dL (7-17); Calcium 9.3 mg/dL (8.4-10.2); Carbon Dioxide 25 mmol/L (22-30); Chloride 103 mmol/L (98-107); Creatine Kinase 127 U/L (30-135); Estimated Glomerular Filt Rate 35; Glucose 177 mg/dL (65-110); Phosphorus 3.7 mg/dL (2.5-4.5); Potassium 4.7 mmol/L (3.4-5.0); Sodium 139 mmol/L (137-145)
[2024-05-28 11:04] LABS: Complement C3 146 mg/dL (88-165)
[2024-05-28 11:05] LABS: Parathyroid Intact 63.7 pg/mL (7.5-53.5)
[2024-05-29 13:43] LABS: Lambda Light Chain 45.2 mg/L (5.7-26.3)
[2024-05-30 15:17] LABS: Complement Total CH50 >60 U/mL (31-60)
== END 2024-05-28 09:45 | disposition home or self-care (01) ==
PROVIDERS: PCP Internal Medicine; Visit Provider Internal Medicine Nephrology
DX: N18.32 Chronic kidney disease, stage 3b (principal); R30.0 Dysuria; E11.22 Type 2 diabetes mellitus with diabetic chronic kidney disease; Z79.899 Other long term (current) drug therapy
CPT/HCPCS: 36415; 80069; 81001; 82550; 83883; 83970; 85027; 86038; 86039; 86160; 86162; 87077; 87086; 87088; 87186

== ENCOUNTER 2024-05-30 08:51 | Outpatient (CLI) | payer MEDICARE, SELFPAY ==
[2024-05-30 11:03] LABS: Creatinine Urine 64.2 mg/dL; Total Protein Urine Random 159 mg/dL; Ur Ttl Prot Creatinine Ratio 2.48 mg/mg (0-0.20)
[2024-05-31 13:14] LABS: Creat 24 Hr 0.62 g/24 h (0.50-2.15); Pro/Creat Ratio 1795 mg/g creat (<150); Pro/Creat Ratio mg/mg 1.795 (<0.150); Protein,total, 24 Hr Ur 1106 mg/24 h (<150)
[2024-06-01 15:33] LABS: Albumin 29 %
== END 2024-05-30 08:52 | disposition home or self-care (01) ==
PROVIDERS: PCP Internal Medicine; Visit Provider Internal Medicine Nephrology
DX: N18.32 Chronic kidney disease, stage 3b (principal); R30.0 Dysuria
CPT/HCPCS: 82570; 84156; 86335

== ENCOUNTER 2024-07-02 08:38 | Outpatient (CLI) | payer MEDICARE, SELFPAY ==
[2024-07-02 09:48] LABS: Alanine Aminotransferase 47 U/L (6-35); Albumin Level 4.3 g/dL (3.5-5.1); Alkaline Phosphatase 58 U/L (38-126); Anion Gap 11 mmol/L (4-12); Aspartate Amino Transferase 53 U/L (14-36); Bilirubin,Total 0.6 mg/dL (0.2-1.3); Blood Urea Nitrogen 29 mg/dL (7-17); Calcium 9.3 mg/dL (8.4-10.2); Carbon Dioxide 29 mmol/L (22-30); Chloride 100 mmol/L (98-107); Cholesterol 121 mg/dL (0-200); Estimated Glomerular Filt Rate 42; Glucose 115 mg/dL (65-110); HDL Direct 32 mg/dL; Potassium 4.4 mmol/L (3.4-5.0); Sodium 140 mmol/L (137-145); Triglycerides 114 mg/dL (<150)
[2024-07-02 09:59] LABS: LDL Cholesterol Direct 55 mg/dL
[2024-07-02 10:55] LABS: Vitamin D 25 Hydroxy 55.3 ng/mL
[2024-07-02 10:57] LABS: Hemoglobin A1C 7.7 % (<5.7)
== END 2024-07-02 08:39 | disposition home or self-care (01) ==
PROVIDERS: PCP Internal Medicine; Visit Provider Internal Medicine
DX: E11.9 Type 2 diabetes mellitus without complications (principal); I10 Essential (primary) hypertension; E55.9 Vitamin D deficiency, unspecified; E78.5 Hyperlipidemia, unspecified
CPT/HCPCS: 36415; 80053; 80061; 82306; 83036